=== PATIENT | male | born 1990 | race Caucasian/White ===

== ENCOUNTER 2022-09-18 11:01 | Emergency (ER) | payer MEDICAID, SELFPAY ==
[2022-09-18 11:11] VITALS: BP 115/81; PULSE 96; RESP 16; TEMP 36.6; O2SAT 99
--- NOTE | 2022-09-18 12:29 | ED_ITS ---
HPI - Ear Problem General: Chief complaint: Ear Stated complaint: cough, congestion Time Seen by Provider: 09/18/22 11:15 History of Present Illness: Patient reports that for a couple of weeks he has had ongoing nasal congestion and drainage. He reports the past 2 days he has had significant ringing of both ears. Worse on the left. Associated symptoms: Reports tinnitus; Denies fever(s) or headache(s) Review of Systems Const: Denies: fever(s) or chills ENMT: Reports: change in hearing, tinnitus, nasal discharge and nasal congestion; Denies: throat pain Card: Denies: chest pain or palpitations Resp: Denies: dyspnea, productive cough or non-productive cough Neuro: Denies: headache(s), numbness in extremities, weakness in extremities, dizziness or vertigo Physical Exam Const: COMMON NORMALS: no acute distress, patient oriented x3 and alert HENMT: COMMON NORMALS: Normal external nose present FACE & SINUS: normal facial exam and sinuses nontender NOSE: Normal external nose present, Normal nares present and Abnormal mucous membranes and turbinates present erythematous TYMPANIC MEMBRANE: TM abnormal TM laterality: bilateral with fluid behind the TM Resp: COMMON NORMALS: normal respiratory effort, No use of accessory muscles and clear to auscultation bilaterally AUSCULTATION: clear to auscultation bilaterally Cardio: COMMON NORMALS: regular rate, regular rhythm, S1 normal heart sound present, S2 normal heart sound present and No murmurs present (Cardio) RATE: regular rate RHYTHM: regular rhythm HEART SOUNDS: S1 normal heart sound present and S2 normal heart sound present Neuro: COMMON NORMALS: patient oriented x3 SENSORIUM/ORIENTATION: Yes alert Course Vital Signs: Vital signs: Vital Signs Temperature 97.8 F 09/18/22 11:11 Pulse Rate 96 09/18/22 11:11 Respiratory Rate 16 09/18/22 11:11 Blood Pressure 115/81 09/18/22 11:11 Pulse Oximetry 99 09/18/22 11:11 MDM - Ear Medical Decision Making Consider eustachian tube dysfunction, upper respiratory infection, acute sinusitis. Patient does not have any tenderness to palpation over maxillary or frontal sinuses. Patient is afebrile. Patient does not have any evidence of acute bacterial infection at this time. I recommend control of nasal allergies. Discussed conservative treatment at home including Flonase and Zyrtec with sinus washes. Follow-up with PCP. Return to the ER for new or worsening symptoms. Discharge Plan Discharge Patient Disposition: Home Clinical Impression: Acute dysfunction of both eustachian tubes, Allergic rhinitis Condition: Stable Discharge Orders: Discharge ED (Routine); Ordered 09/18/22 Ordered By: Keke Traylor Discharge Diet: Usual diet Discharge Activity: Resume usual activity Patient Instructions: Allergic Rhinitis (ED) Activity Restrictions/Additional Instructions: I recommend conservative treatment at home to help control nasal allergies including Zyrtec and Flonase [id number]. You can use the [place] pot to help rinse the sinuses. I recommend holding your nose and blowing to help equalize the pressure. This is recommended up to 10 times an hour when you are awake. Sit down when you do this so as not to get dizzy and fall. Follow-up with primary care provider as needed. Return to the ER for new or worsening symptoms. Coding Level of Care Code ED Senior Trial Attorney for Jordan Arellano
== END 2022-09-18 13:03 | disposition home or self-care (01) ==
PROVIDERS: Emergency Provider Nurse Practitioner Family
DX: J30.9 Allergic rhinitis, unspecified (principal); J06.9 Acute upper respiratory infection, unspecified
CPT/HCPCS: 99282

== ENCOUNTER 2023-05-05 18:27 | Emergency (ER) | payer MEDICAID, SELFPAY ==
[2023-05-05 18:27] VITALS: BP 114/65; PULSE 88; RESP 16; TEMP 36.9; O2SAT 97; BMI 24.4
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
[2023-05-05 19:08] LABS: Alanine Aminotransferase 14 U/L (0-41); Albumin Level 4.5 g/dL (3.5-5.2); Alcohol Level 260 mg/dL (0-10); Alkaline Phosphatase 110 U/L (40-130); Anion Gap 13.3 (5-19); Aspartate Amino Transferase 19 U/L (0-40); Blood Urea Nitrogen 9 mg/dL (6-20); Calcium 8.7 mg/dL (8.5-10.5); Carbon Dioxide 24 mmol/L (22-29); Chloride 101 mmol/L (98-107); Globulin 2.5 g/dL (1.3-4.6); Glomerular Filtration Rate 129.9 mL/min (90-130); Glucose 88 mg/dL (65-115); Osmolality Calculated 278 mOsm/kg (285-295); Potassium 3.3 mmol/L (3.5-5.1); Sodium 135 mmol/L (136-145); Total Bilirubin 0.5 mg/dL (0.15-1.2)
[2023-05-05] MEDS: ondansetron 2 mg/ML SDV 2 mL 4 MG IVP (19:11)
[2023-05-05 19:13] VITALS: RESP 17; O2SAT 96
[2023-05-05 19:13] LABS: Basophils # 0.1 10^3/uL (0.0-0.1); Basophils % 0.9 %; Eosinophils # 0.1 10^3/uL (0.0-0.8); Eosinophils % 1.3 %; Hematocrit 43.7 % (42.0-52.0); Hemoglobin 14.8 g/dL (11.7-16.6); Lymphocytes # 2.9 10^3/uL (0.8-4.8); Lymphocytes % 33.3 %; Mean Corpuscular HGB Conc 33.9 g/dL (30.0-36.0); Mean Corpuscular Hemoglobin 29.4 pg (28.0-34.0); Mean Corpuscular Volume 86.7 fl (80-94); Mean Platelet Volume 9.5 fL (7.4-10.4); Monocytes # 0.8 10^3/uL (0.2-0.9); Monocytes % 9.1 %; Neutrophils # 4.73 10^3/uL (1.8-7.7); Neutrophils % 55.2 %; Nucleated Red Blood Cells % 0 %; Platelet Count 376 10^3/cmm (130-400); Red Blood Count 5.04 10^6/uL (4.1-5.3); Red Cell Distribution Width 13.1 % (12.1-15.1); White Blood Count 8.6 10^3/uL (4.0-10.0)
[2023-05-05] MEDS: iohexol 350 mg/mL 500 mL Btl (per mL) IV (19:13)
[2023-05-05] MEDS: morphine 4 mg/mL SDV 1 mL IVP (19:13)
[2023-05-05] MEDS: sodium chloride 0.9% 1,000 ML 999 ML IV (19:14)
[2023-05-05] MEDS: tetanus-dipt-pertussis 0.5 mL SDV IM (19:15)
[2023-05-05 19:35] VITALS: BP 141/74; PULSE 86; RESP 18; O2SAT 97
== END 2023-05-05 21:20 | disposition home or self-care (01) ==
PROVIDERS: Emergency Provider Emergency Medicine
DX: S01.01XA Laceration without foreign body of scalp, initial encounter (principal); S20.219A Contusion of unspecified front wall of thorax, initial encounter; S50.311A Abrasion of right elbow, initial encounter; S06.0X0A Concussion without loss of consciousness, initial encounter; R40.2412 Glasgow coma scale score 13-15, at arrival to emergency department; F10.129 Alcohol abuse with intoxication, unspecified; Z23 Encounter for immunization; V48.0XXA Car driver injured in noncollision transport accident in nontraffic accident, initial encounter
CPT/HCPCS: 12001; 70450; 71260; 72125; 74177; 80053; 80307; 85025; 90471; 90715; 96361; 96374; 96375; 99285; J2270; J2405; J7030; Q9967

== ENCOUNTER 2023-05-13 19:02 | Emergency (ER) | payer MEDICAID, SELFPAY ==
[2023-05-13 19:07] VITALS: BP 127/85; PULSE 76; RESP 16; TEMP 36.6; O2SAT 98; BMI 25.1
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
[2023-05-13] MEDS: acetaminophen 500 mg Tablet 1000 MG PO (20:08)
[2023-05-13] MEDS: meclizine 25 mg tablet PO (21:15)
--- NOTE | 2023-05-22 13:46 | DCPLANNER ---
human resources talent manager called patient due to no primary care physician - no answer at this time.
== END 2023-05-13 21:19 | disposition home or self-care (01) ==
PROVIDERS: Emergency Provider Nurse Practitioner Family
DX: F07.81 Postconcussional syndrome (principal)
CPT/HCPCS: 70450; 99284; J8597

== ENCOUNTER → 2023-06-12 14:13 | Outpatient (BNVA) | payer MEDICAID, SELFPAY | PROVIDERS: PCP Family Medicine; Visit Provider Family Medicine | DX: R11.10 Vomiting, unspecified (principal); E87.6 Hypokalemia | CPT/HCPCS: 80053; 80061; 84439; 84443; 85025; 87400; 87426 ==

== ENCOUNTER 2023-06-17 12:19 | Emergency (ER) | payer MEDICAID, SELFPAY ==
[2023-06-17 12:30] VITALS: BMI 23.7
[2023-06-17 12:33] VITALS: BP 121/81; PULSE 116; RESP 18; TEMP 36.9; O2SAT 94
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
--- NOTE | 2023-06-17 13:50 | ED_ITS ---
HPI - Extremity Injury (Lower) General: Chief Complaint: Extremity Injury, Lower Stated Complaint: Left foot pain Time Seen by Provider: 06/17/23 12:43 Source: patient Mode of arrival: ambulatory Limitations: no limitations History of Present Illness: Patient is a nice 32-year-old male who presents to ED today with a complaint of left foot pain/injury that he sustained approximately a week ago after dropping a heavy box on top of the foot. Patient states throughout the week pain has continued to persist and increase. He has continued to bear weight but with increasing difficulty. He has not noticed significant swelling or bruising to the area. Denies numbness, tingling, loss of sensation. He has not noticed any color or temperature changes. MD complaint: foot injury Onset (ago): day(s) Injury: Left: foot Type of Injury: blunt Place: home Severity: moderate Relieving factors: immobilization Exacerbating factors: weight bearing Context: direct blow Associated symptoms: Reports no associated symptoms Other symptoms: none Review of Systems Musc: Reports: extremity pain (L foot); Denies: extremity swelling, joint pain or joint swelling Neuro: Reports: difficulty walking (secondary to L foot pain); Denies: numbness in extremities or sensory changes PFSH ED PFSH: Surgical History History of thumb surgery Family History Denies family history of Diabetes CAD (coronary artery disease) Clotting disorder Dementia Hyperlipidemia Psychiatric illness Chronic kidney disease (CKD) Anesthesia complication Bleeding disorder Lung disease Cancer Hypertension Stroke Social History Smoking and tobacco status: current every day smoker cigarettes Packs smoked per day: 1 Alcohol intake: never Substance/Drug Use: never Lives independently: Yes Current occupational status: employed Special kristen needs: No Agree to transfusion: Yes Physical Exam Const: COMMON NORMALS: no acute distress, average body habitus, patient oriented x3, no limitations, healthy appearing, alert and well nourished Extremity: COMMON NORMALS: capillary refill normal, no joint enlargement, no clubbing, cyanosis or edema, no calf tenderness and no pedal edema GENERAL: Yes normal exam except as noted LEFT LOWER EXTREMITY: Yes foot & digits (TTP distal dorsal L foot; minimal swelling) Left foot and digits: Yes inspection (no obvious bony deformity; chronic varicosities) and Yes neurovascular exam (normal) Neuro: COMMON NORMALS: patient oriented x3, moves all extremities, no focal motor deficits and no sensory deficits noted SENSORIUM/ORIENTATION: Yes alert Skin: NARRATIVE SKIN EXAM: no abrasions/breaks in skin on L foot Course Vital Signs: Vital signs: Vital Signs Temperature 98.4 F 06/17/23 12:33 Pulse Rate 116 H 06/17/23 12:33 Respiratory Rate 18 06/17/23 12:33 Blood Pressure 121/81 06/17/23 12:33 Pulse Oximetry 94 06/17/23 12:33 Oxygen Delivery Me thod Room Air 06/17/23 12:33 MDM - Extremity Injury (Lower) Medical Decision Making XR showing nondisplaced midshaft fracture of his second metatarsal. Patient will be placed in a posterior short leg splint and given crutches for nonweightbearing. We will have case management get him a follow-up appointment with podiatry. Is requesting pain medication which I feel is appropriate. Discharge Plan Discharge Patient Disposition: Home Clinical Impression: Closed fracture of second metatarsal bone of left foot Qualifiers: Encounter type: initial encounter Fracture alignment: nondisplaced Qualified Code(s): S92.325A - Nondisplaced fracture of second metatarsal bone, left foot, initial encounter for closed fracture Condition: Stable Prescriptions: New hydrocodone-acetaminophen 5-325 mg tablet 1 tab PO Q6H PRN (Reason: pain) Qty: 14 0RF No Action fluoxetine 20 mg capsule 20 mg PO DAILY Qty: 30 0RF hydroxyzine HCl 25 mg tablet 25 mg PO BID PRN (Reason: itching) Qty: 60 0RF Discharge Orders: Discharge ED (Routine); Ordered 06/17/23 Ordered By: Tameka Romo Referrals: Carlos Holm MD [Primary Care Provider] - Patient Instructions: Fractures - Metatarsal, Foot Fracture in Adults (ED), Opioid Safety, Pain Management Activity Restrictions/Additional Instructions: As we discussed no weightbearing until you follow-up with podiatry. Case management should contact you shortly to set you up with this follow-up appointment. You may ice and elevate the extremity to help with pain/swelling. You may take prescribed pain medication for severe pain. 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
[2023-06-17 14:38] VITALS: BP 118/80; PULSE 80; RESP 18; TEMP 36.9; O2SAT 94
--- NOTE | 2023-06-17 14:56 | DCPLANNER ---
Addendum entered by Faviola Gallegos 06/28/23 10:29: Patient did attend this appointment with ortho Addendum entered by Faviola Gallegos 06/18/23 14:34: Patient has a follow up appointment scheduled for May at 10:[address] Andino at ortho. Original Note: hatchery manager had message to schedule a follow up appointment for patient with ortho. hatchery manager sent patients information to the front office staff at ortho. Patients information will be printed and reviewed. Clinic will call patient with appointment information.
== END 2023-06-17 14:41 | disposition home or self-care (01) ==
PROVIDERS: Emergency Provider Physician Assistant; PCP Family Medicine
DX: S92.325A Nondisplaced fracture of second metatarsal bone, left foot, initial encounter for closed fracture (principal); F17.210 Nicotine dependence, cigarettes, uncomplicated; W20.8XXA Other cause of strike by thrown, projected or falling object, initial encounter
CPT/HCPCS: 73630; 99283; E0114

== ENCOUNTER 2023-06-18 16:29 | Outpatient (CLI) | payer MEDICAID, SELFPAY | END 2023-06-18 16:30 | disposition home or self-care (01) | LOC: SPT 16:34 | PROVIDERS: PCP Family Medicine; Visit Provider Podiatrist Foot & Ankle Surgery | DX: S92.325A Nondisplaced fracture of second metatarsal bone, left foot, initial encounter for closed fracture (principal); W20.8XXA Other cause of strike by thrown, projected or falling object, initial encounter | CPT/HCPCS: 97760; 99203; L4361 ==

== ENCOUNTER → 2023-07-02 15:05 | Outpatient (BNVA) | payer MEDICAID, SELFPAY | PROVIDERS: PCP Family Medicine; Visit Provider Podiatrist Foot & Ankle Surgery | DX: S92.325A Nondisplaced fracture of second metatarsal bone, left foot, initial encounter for closed fracture; W20.8XXA Other cause of strike by thrown, projected or falling object, initial encounter | CPT/HCPCS: 73630; 99213 ==

== ENCOUNTER 2023-07-02 16:13 | Outpatient (CLI) | payer MEDICAID, SELFPAY | END 2023-07-02 16:14 | disposition home or self-care (01) | LOC: SPT 16:13 | PROVIDERS: PCP Family Medicine; Visit Provider Podiatrist Foot & Ankle Surgery | DX: Z46.89 Encounter for fitting and adjustment of other specified devices (principal); S92.322D Displaced fracture of second metatarsal bone, left foot, subsequent encounter for fracture with routine healing; X58.XXXD Exposure to other specified factors, subsequent encounter | CPT/HCPCS: L3031 ==

== ENCOUNTER → 2023-07-30 14:20 | Outpatient (BNVA) | payer MEDICAID, SELFPAY | PROVIDERS: PCP Family Medicine; Visit Provider Podiatrist Foot & Ankle Surgery | DX: S92.325D Nondisplaced fracture of second metatarsal bone, left foot, subsequent encounter for fracture with routine healing; W20.8XXD Other cause of strike by thrown, projected or falling object, subsequent encounter | CPT/HCPCS: 73630; 99213 ==

== ENCOUNTER → 2023-08-09 11:21 | Outpatient (BNVA) | payer MEDICAID, SELFPAY | PROVIDERS: PCP Family Medicine; Visit Provider Nurse Practitioner Family | DX: R50.9 Fever, unspecified (principal); J06.9 Acute upper respiratory infection, unspecified | CPT/HCPCS: 87400; 87426 ==

== ENCOUNTER 2023-08-13 21:37 | Inpatient (IN) | payer MEDICAID, SELFPAY ==
[2023-08-13 21:38] VITALS: BP 128/95; PULSE 114; RESP 18; TEMP 36.8; O2SAT 98; BMI 25.1
--- NOTE | 2023-08-13 21:40 | W.ED.PSYCHS ---
HPI - Psych General: Chief Complaint: Psychiatric Symptoms Stated Complaint: SI Time Seen by Provider: 08/13/23 21:38 Source: patient and EMS Mode of arrival: EMS Limitations: no limitations History of Present Illness: 33-year-old male with history of schizophrenia along with depression he states that he has been hearing voices and states that today he started having suicidal thoughts he denies any specific plans but states that his voices are worsening his actively feeling suicidal and feels like he needs to get help. Denies any worsening improving factors. Associated symptoms: Reports auditory hallucinations, depression and suicidal ideation Review of Systems Const: Denies: fever(s), chills, body aches or change in appetite Eyes: Denies: blurry vision or eye discomfort ENMT: Denies: throat pain or dental pain Card: Denies: chest pain Resp: Denies: dyspnea GI: Denies: abdominal pain, nausea, vomiting or diarrhea Musc: Denies: neck pain or back pain Skin/Breast: Denies: rash Neuro: Denies: headache(s) Psych: Reports: depression, auditory hallucinations and suicidal ideation [facility] ED PFSH: Medical History PTSD (post-traumatic stress disorder) Schizophrenia Surgical History History of thumb surgery Family History Denies family history of Diabetes CAD (coronary artery disease) Clotting disorder Dementia Hyperlipidemia Psychiatric illness Chronic kidney disease (CKD) Anesthesia complication Bleeding disorder Lung disease Cancer Hypertension Stroke Social History Smoking and tobacco/nicotine status: current every day tobacco/nicotine user cigarettes Packs smoked per day: 1 Alcohol intake: current Alcohol intake frequency: few times a week Alcohol type: beer Substance/Drug Use: never Lives independently: Yes Current occupational status: employed Special kristen needs: No Agree to transfusion: Yes Physical Exam Const: COMMON NORMALS: no acute distress, patient oriented x3 and healthy appearing HENMT: COMMON NORMALS: normocephalic and atraumatic HEAD & SCALP: normocephalic and atraumatic Neck/C-Spine: COMMON NORMALS: full ROM and supple Chest: COMMONS NORMALS: normal inspection of the chest and normal palpation of entire chest wall Resp: COMMON NORMALS: normal respiratory effort, No retractions, No use of accessory muscles and clear to auscultation bilaterally AUSCULTATION: clear to auscultation bilaterally Cardio: COMMON NORMALS: regular rate, regular rhythm and No murmurs present (Cardio) RATE: regular rate RHYTHM: regular rhythm GI: COMMON NORMALS: Normal to inspection, nondistended, normoactive bowel sounds present, Soft to palpation, non-tender and no masses PALPATION: Yes Soft to palpation Extremity: COMMON NORMALS: normal to inspection and full ROM Neuro: COMMON NORMALS: patient oriented x3, moves all extremities and no focal motor deficits Psych: COMMON NORMALS: mental status grossly normal, Normal thought process present and cooperative MOOD & AFFECT: Yes depressed mood THOUGHT PROCESS: Normal thought process present THOUGHT CONTENT: Yes Suicidality present Skin: COMMON NORMALS: no rashes or lesions noted and no wounds GENERAL SKIN EXAM: no rashes or lesions noted Course Vital Signs: Vital signs: Vital Signs Temperature 98.2 F 08/13/23 21:38 Pulse Rate 114 H 08/13/23 21:38 Respiratory Rate 18 08/13/23 21:38 Blood Pressure 128/95 08/13/23 21:38 Pulse Oximetry 98 08/13/23 21:38 Oxygen Delivery Me thod Room Air 08/13/23 21:38 MDM - Psych Medical Decision Making Patient presents here with auditory hallucinations along with suicidal ideations patient placed under 96-hour hold I spoke to psychiatrist and will admit. Medical Records I reviewed the patient's medical records. Lab Data I reviewed the patient's lab results. 08/13/23 21:52 08/13/23 21:52 Laboratory Results WBC 7.09 10^3/uL (3.29-11.43) 08/13/23 21:52 RBC 5.16 10^6/uL (3.85-5.65) 08/13/23 21:52 Hgb 14.80 g/dL (11.27-16.99) 08/13/23 21:52 Hct 45.3 % (37-53) 08/13/23 21:52 MCV 87.8 fl (82-101) 08/13/23 21:52 MCH 28.7 pg (27-33) 08/13/23 21:52 MCHC 32.7 g/dL (30-55) 08/13/23 21:52 RDW 13.3 % (12.1-15.1) 08/13/23 21:52 Plt Count 375 10^3/cmm (157-399) 08/13/23 21:52 MPV 8.8 fL (7.4-10.4) 08/13/23 21:52 Neut % (Auto) 47.2 % 08/13/23 21:52 Lymph % (Auto) 39.9 % 08/13/23 21:52 Wilkin % (Auto) 10.0 % 08/13/23 21:52 Eos % (Auto) 1.3 % 08/13/23 21:52 Baso % (Auto) 1.3 % 08/13/23 21:52 Neut # (Auto) 3.35 10^3/uL (1.8-7.7) 08/13/23 21:52 Lymph # (Auto) 2.8 10^3/uL (0.8-4.8) 08/13/23 21:52 Wilkin # (Auto) 0.7 10^3/uL (0.2-0.9) 08/13/23 21:52 Eos # (Auto) 0.1 10^3/uL (0.0-0.8) 08/13/23 21:52 Baso # (Auto) 0.1 10^3/uL (0.0-0.1) 08/13/23 21:52 Nucleated RBC % (auto) 0 % 08/13/23 21:52 Nucleated RBCs # 0.0 /100WBC 08/13/23 21:52 No radiology studies performed this visit Discharge Plan Discharge Patient Disposition: Admitted As Inpatient Admit Provider: Brendan Gee Clinical Impression: Suicidal ideations, Hallucinations Condition: Stable Coding Level of Care Code ED [place] for Jordan Arellano
[2023-08-13 21:57] LABS: Basophils # 0.1 10^3/uL (0.0-0.1); Basophils % 1.3 %; Eosinophils # 0.1 10^3/uL (0.0-0.8); Eosinophils % 1.3 %; Hematocrit 45.3 % (37-53); Lymphocytes # 2.8 10^3/uL (0.8-4.8); Lymphocytes % 39.9 %; Mean Corpuscular HGB Conc 32.7 g/dL (30-55); Mean Corpuscular Hemoglobin 28.7 pg (27-33); Mean Corpuscular Volume 87.8 fl (82-101); Mean Platelet Volume 8.8 fL (7.4-10.4); Monocytes # 0.7 10^3/uL (0.2-0.9); Neutrophils # 3.35 10^3/uL (1.8-7.7); Neutrophils % 47.2 %; Nucleated Red Blood Cells % 0 %; Platelet Count 375 10^3/cmm (157-399); Red Blood Count 5.16 10^6/uL (3.85-5.65); Red Cell Distribution Width 13.3 % (12.1-15.1); White Blood Count 7.09 10^3/uL (3.29-11.43)
--- NOTE | 2023-08-13 21:57 | PC.NURSE ---
96 Pt served with copy of 96 Hour Hold paper by this RN and security. Pt agreeable and pleasant at this time.
[2023-08-13 22:10] LABS: Amphetamines Screen Urine Negative (Negative); Barbiturates Screen Urine Negative (Negative); Benzodiazepines Screen Urine Negative (Negative); Cocaine Screen Urine Negative (Negative); Opiate Screen Urine Negative (Negative); PCP Screen Urine Negative (Negative); THC Screen Urine Negative (Negative)
[2023-08-13 22:20] LABS: Alanine Aminotransferase 15 U/L (0-41); Albumin Level 4.7 g/dL (3.5-5.2); Alcohol Level 123 mg/dL (0-10); Alkaline Phosphatase 115 U/L (40-130); Aspartate Amino Transferase 20 U/L (0-40); Blood Urea Nitrogen 12 mg/dL (6-20); Calcium 9.3 mg/dL (8.5-10.5); Carbon Dioxide 29 mmol/L (22-29); Chloride 104 mmol/L (98-107); Globulin 2.7 g/dL (1.3-4.6); Glomerular Filtration Rate 69.3 mL/min (90-130); Glucose 90 mg/dL (65-115); Osmolality Calculated 293 mOsm/kg (285-295); Sodium 142 mmol/L (136-145); Total Bilirubin 0.5 mg/dL (0.15-1.2); Total Protein 7.4 g/dL (6.6-8.7)
[2023-08-13 22:21] LABS: Acetaminophen < 5.0 ug/mL (10-30); Salicylate < 0.3 mg/dL (3-10)
[2023-08-13 22:23] VITALS: BP 124/91; BP 130/86; PULSE 109; PULSE 92; RESP 18; RESP 20; TEMP 36.7; O2SAT 98
[2023-08-13] MEDS: trazodone 50 mg Tablet PO (22:51)
[2023-08-14 06:00] VITALS: BP 112/66; PULSE 80; RESP 17; TEMP 36.7; O2SAT 95
[2023-08-14] MEDS: thiamine 100 mg Tablet PO (08:26)
[2023-08-14] MEDS: folic acid 1 mg Tablet PO (08:26)
[2023-08-14] MEDS: multivitamin therapeutic Tablet 1 TAB PO (08:26)
[2023-08-14] MEDS: nicotine 21 mg Patch 1 PATCH TRANSDERMA (08:32)
[2023-08-14] MEDS: ibuprofen 600 mg Tablet PO (09:01)
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
[2023-08-14 14:00] VITALS: BP 118/69; PULSE 86; RESP 17; TEMP 36.8; O2SAT 97
[2023-08-14] MEDS: hyDROXYzine 25 mg Capsule 50 MG PO (14:34)
[2023-08-14] MEDS: nicotine 2 mg Gum BUCCAL ×3 (14:45→20:45)
[2023-08-14] MEDS: OLANZapine 5 mg ODT PO (18:30)
[2023-08-14 20:19] VITALS: BP 108/68; PULSE 88; RESP 17; TEMP 36.9; O2SAT 97
[2023-08-14] MEDS: quetiapine 100 mg Tablet PO (20:45)
[2023-08-15 06:00] VITALS: BP 115/71; PULSE 70; RESP 18; TEMP 36.5; O2SAT 99
[2023-08-15] MEDS: fluoxetine 20 mg Capsule PO (08:48)
[2023-08-15] MEDS: thiamine 100 mg Tablet PO (08:49)
[2023-08-15] MEDS: folic acid 1 mg Tablet PO (08:49)
[2023-08-15] MEDS: nicotine 2 mg Gum BUCCAL ×3 (08:49→15:00)
[2023-08-15] MEDS: multivitamin therapeutic Tablet 1 TAB PO (08:49)
[2023-08-15] MEDS: ARIPiprazole 10 mg Tablet PO (08:49)
--- NOTE | 2023-08-15 13:05 | P.NPUPN_ITS ---
Subjective NPU Subjective: Patient presented today reporting that he is feeling better and lobbying for discharge sooner rather than later. We had a lengthy discussion about when his 96-hour hold ends and just wanting to make sure that the medication is in fact functioning. We discussed concerns about him restarting the medication that was started at his doctor's office. We discussed consideration of a long-acting injectable. Mental Status Exam MSE Comments: This is a well-nourished, well-developed, white male, in hospital scrubs, with adequate grooming and eye contact. No abnormal movements, except for mild psyc homotor retardation. Cooperative with exam in mild distress. Speech was normal rate and volume. Mood described as anxious, a little depressed; affect slightly subdued and robotic. Thought process, organized. Thought content: patient denied any suicidal or homicidal ideation; patient endorses slight paranoia currently; he endorses auditory hallucinations. Attention, concentration, and memory appear ed intact, but none were formally tested. Alert and oriented times three. Insight and judgment appear limited. Impulse control is impaired. Vitals/I&O/Wt Last Vital Signs Temp 97.7 F 08/15/23 06:00 Pulse 70 08/15/23 06:00 Resp 18 08/15/23 06:00 BP 115/71 08/15/23 06:00 Pulse Ox 99 08/15/23 06:00 O2 Del Method Room Air 08/15/23 06:00 Weight last 48 hrs Weight 81.647 kg Data NPU 08/13/23 21:52 08/13/23 21:52 A&P Assessment and plan (1) Suicidal ideations: (2) Hallucinations: (3) PTSD (post-traumatic stress disorder): (4) Schizophrenia: Plan This is a 33-year-old, white male, with a reported history of schizophrenia but very limited history of treatment or exposure to different medications. Without significant psychiatric follow-up reporting an openness to try different medications. 1. Continue current medication except: 2. Decrease Seroquel. 3. Stared Abilify 10 mg p.o. daily. We will consider increasing to 15 mg. 4. Encourage individual, group, and milieu therapy. 5. Continue q-15-minute checks for safety. Involuntary Hold Information 96 Hour Hold: 96 Hour Involuntary Admission: Yes Attestations NPU Medical Necessity Statement*: Inpatient hospitalization is medically necessary and the clinically appropriate intervention, at this time. We will monitor medications and make changes as indicated. Likely length of stay is 2-4 days. Coding Level of Care Code Acute Code for [facility]g Fwd Diagnoses Suicidal ideations R45.851 Hallucinations R44.3 PTSD (post-traumatic stress disorder) F43.10 Schizophrenia F20.9
[2023-08-15 14:00] VITALS: BP 120/79; PULSE 95; RESP 17; TEMP 36.9; O2SAT 95
[2023-08-15] MEDS: hyDROXYzine 25 mg Capsule 50 MG PO (15:17)
[2023-08-15 19:38] VITALS: BP 116/71; PULSE 79; RESP 16; TEMP 36.9; O2SAT 98
[2023-08-15] MEDS: trazodone 100 mg Tablet PO (20:57)
[2023-08-15] MEDS: quetiapine 100 mg Tablet PO (20:57)
[2023-08-16 06:00] VITALS: BP 107/71; PULSE 73; RESP 16; TEMP 36.9; O2SAT 96
[2023-08-16] MEDS: multivitamin therapeutic Tablet 1 TAB PO (08:35)
[2023-08-16] MEDS: ARIPiprazole 10 mg Tablet PO (08:35)
[2023-08-16] MEDS: thiamine 100 mg Tablet PO (08:35)
[2023-08-16] MEDS: hyDROXYzine 25 mg Capsule 50 MG PO (08:35)
[2023-08-16] MEDS: folic acid 1 mg Tablet PO (08:35)
[2023-08-16] MEDS: fluoxetine 20 mg Capsule PO (08:35)
--- NOTE | 2023-08-16 11:06 | P.NPUPN_ITS ---
Subjective NPU Subjective: Patient presented today reporting that he is doing okay. He was really focused on discharge primarily secondary to not wanting to cause a problem at work. He does not lose his job and reports that he called off again and does not have to be there till Saturday and feels that as long as he is there by Saturday everything will be fine. We discussed the risks, benefits and alternatives of starting Abilify Maintena with a plan to switch over to Abilify Asimtufii and he understood and agreed to proceed as is documented in his note. We discussed discharge in the morning. Mental Status Exam MSE Comments: This is a well-nourished, well-developed, white male, in hospital scrubs, with adequate grooming and eye contact. No abnormal movements, except for mild psychomotor retardation. Cooperative with exam in mild distress. Speech was normal rate and volume. Mood described as anxious, a little depressed; affect slightly subdued and robotic. Thought process, organized. Thought content: patient denied any suicidal or homicidal ideation; patient endorses slight paranoia currently; he endorses auditory hallucinations. Attention, concentration, and memory appeared intact, but none were formally tested. Alert and oriented times three. Insight and judgment appear limited. Impulse control is impaired. Vitals/I&O/Wt Last Vital Signs Temp 98.4 F 08/16/23 06:00 Pulse 73 08/16/23 06:00 Resp 16 08/16/23 06:00 BP 107/71 08/16/23 06:00 Pulse Ox 96 08/16/23 06:00 O2 Del Method Room Air 08/16/23 06:00 Data NPU 08/13/23 21:52 08/13/23 21:52 A&P Assessment and plan (1) Suicidal ideations: (2) Hallucinations: (3) PTSD (post-traumatic stress disorder): (4) Schizophrenia: Plan This is a 33-year-old, white male, with a reported history of schizophrenia but very limited history of treatment or exposure to different medications. Without significant psychiatric follow-up reporting an openness to try different medicat ions. 1. Continue current medication except: 2. Decrease Seroquel. 3. Stared Abilify 10 mg p.o. daily. We will consider increase to 15 mg. And gave Abilify Maintena injection 400 mg IM q. monthly. We will attempt to discharge with a plan to switch over to Abilify Asimtufii. 4. Encourage individual, group, and milieu therapy. 5. Continue q-15-minute checks for safety. Involuntary Hold Information 96 Hour Hold: 96 Hour Involuntary Admission: Yes Attestations NPU Medical Necessity Statement*: Inpatient hospitalization is medically necessary and the clinically appropriate intervention, at this time. We will monitor medications and make changes as indicated. Likely length of stay is 1-3 days. Coding Level of Care Code Acute Code for Chg Fwd Diagnoses Suicidal ideations R45.851 Hallucinations R44.3 PTSD (post-traumatic stress disorder) F43.10 Schizophrenia F20.9
[2023-08-16] MEDS: OLANZapine 5 mg ODT PO (12:22)
[2023-08-16] MEDS: ARIPiprazole Maintena 400 MG IM (12:39)
[2023-08-16] MEDS: nicotine 21 mg Patch 1 PATCH TRANSDERMA (12:39)
--- NOTE | 2023-08-16 12:51 | PC.NURSE ---
Administered 400mg Abilify Maintena to patient's left deltoid muscle. No adverse reactions. Patient tolerated injection well. Lot: [id number]: Dec 2025
[2023-08-16 14:00] VITALS: BP 122/74; PULSE 73; RESP 16; TEMP 36.6; O2SAT 95
[2023-08-16] MEDS: trazodone 100 mg Tablet PO (20:11)
[2023-08-16] MEDS: quetiapine 100 mg Tablet PO (20:11)
[2023-08-16] MEDS: nicotine 2 mg Gum BUCCAL (20:27)
[2023-08-16 20:32] VITALS: BP 110/76; PULSE 87; RESP 18; TEMP 36.8; O2SAT 96
[2023-08-17 06:00] VITALS: BP 102/67; PULSE 83; RESP 16; O2SAT 96
[2023-08-17] MEDS: ARIPiprazole 10 mg Tablet PO (08:28)
[2023-08-17] MEDS: thiamine 100 mg Tablet PO (08:28)
[2023-08-17] MEDS: multivitamin therapeutic Tablet 1 TAB PO (08:28)
[2023-08-17] MEDS: fluoxetine 20 mg Capsule PO (08:28)
[2023-08-17] MEDS: folic acid 1 mg Tablet PO (08:28)
--- NOTE | 2023-08-17 09:02 | PC.NURSE ---
Patient states that he is doing pretty good. Patient denies SI, HI, anxiety, depression, and AVH. Patient cooperative, states that he is ready to be discharged.
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
[2023-08-17 10:28] VITALS: BP 102/67; PULSE 83; RESP 16; O2SAT 96
--- NOTE | 2023-08-17 10:40 | PC.NURSE ---
Dr. Gee told this nurse to verbally change Abilify 15mg to Abilfy 10mg PO at [facility]. [place] [facility] [place] Abilify 400mg IM at no cost to patient.
[2023-08-17] MEDS: nicotine 2 mg Gum BUCCAL (13:02)
[2023-08-17 13:09] VITALS: BP 112/73; PULSE 80; RESP 14; TEMP 37; O2SAT 96
== END 2023-08-17 16:33 | disposition home or self-care (01) | DRG 885 ==
LOC: ER 21:54 → NP 21:59
PROVIDERS: Admitting Provider Psychiatry & Neurology Psychiatry; Emergency Provider Emergency Medicine; PCP Family Medicine; Visit Provider Psychiatry & Neurology Psychiatry
DX: F20.9 Schizophrenia, unspecified (principal); R45.851 Suicidal ideations; F17.210 Nicotine dependence, cigarettes, uncomplicated; F10.90 Alcohol use, unspecified, uncomplicated; F43.10 Post-traumatic stress disorder, unspecified
CPT/HCPCS: 36415; 80053; 80306; 80307; 85025; 96372; 97150; 97165; 99285

== ENCOUNTER 2023-08-26 14:07 | Emergency (ER) | payer MEDICAID, SELFPAY ==
[2023-08-26 14:28] VITALS: BP 122/76; PULSE 105; RESP 16; TEMP 36.6; O2SAT 97; BMI 25.1
--- NOTE | 2023-08-26 14:57 | XRR_ITS ---
PROCEDURE INFORMATION: Exam: XR Left Foot Exam date and time: 08/26/2023 3:07 PM Age: 33 years old Clinical indication: Other: Pain; Additional info: Pain, healing 2nd metatarsal fx-doi may TECHNIQUE: Imaging protocol: Radiologic exam of the left foot. Views: 3 or more views. COMPARISON: No relevant prior studies available. FINDINGS: Bones/joints: Healing 2nd metatarsal shaft fracture with remodeling callus formation. No acute fracture. Mineralization is normal and joints are maintained. Soft tissues: Unremarkable. XR/XR foot LT min 3V* [id number] IMPRESSION: Healing 2nd metatarsal shaft fracture.
--- NOTE | 2023-08-26 14:59 | ED_ITS ---
HPI - General Adult General: Chief complaint: Extremity Injury, Lower Stated complaint: Left foot second toe injury, also med side effects Time Seen by Provider: 08/26/23 14:34 Source: patient Mode of arrival: ambulatory Limitations: no limitations History of Present Illness: Patient is a 33-year-old male who presents to ED today with two separate complaints. First of all he tells me he is having left foot pain. Patient sustained a fracture to his left second metatarsal back in May after dropping something heavy on it. He has had appropriate follow-up through podiatry as well his PCP. Patient states he has been cleared to remove his boot and carbon fiber insert. Instructions for normal weight bearing/no restrictions. He states with his current situation he has been walking for long distances daily up to several miles a day. He feels like this most likely has exacerbated his foot pain. No new injuries or trauma. Patient's second complaint is that he believes he is having adverse reactions to his Abilify injection. He states he received this recently while in [facility] and a few days later he began experiencing side effects of increased salivation and dizziness. He states dizziness is mainly in the mornings and seems to improve throughout the day. He thinks this may be secondary to hypotension. Patient was normotensive upon arrival. Following injection he was placed on oral Abilify 10mg daily. He also takes Seroquel, Trazadone, and Prozac daily. Onset (ago): day(s) Pain Consistency: constant Relieving factors: immobilization Exacerbating factors: medication (new medication) and other (walking) Associated symptoms: Deny chest pain, confusion, dyspnea, headache(s), malaise, nausea, rash, palpitations, syncope or vomiting Treatments prior to arrival: none Review of Systems Const: Denies: fever(s), chills, body aches, fatigue or malaise Eyes: Denies: change in vision or blurry vision ENMT: Reports: other (increased salivation ); Denies: throat pain, odynophagia, hoarseness, mouth pain, swelling of lips/tongue, oral sores, bleeding gums, dental pain, dry mouth, ear or mastoid pain, nasal discharge, nasal congestion or sinus pain Card: Reports: lightheadedness; Denies: chest pain, palpitations, irregular heart rhythm, edema, swelling of feet/ankles, syncope, pre-syncope, dyspnea on exertion, orthopnea, leg pain with exertion or acrocyanosis Resp: Denies: dyspnea, productive cough or pain on inspiration GI: Denies: abdominal pain, nausea, vomiting, heartburn or diarrhea : Denies: flank pain, difficulty urinating or dysuria Musc: Reports: extremity pain (L foot); Denies: neck pain, back pain, extremity swelling, joint pain, joint swelling, joint redness, joint warmth or limited range of motion Skin/Breast: Denies: rash Neuro: Reports: dizziness; Denies: headache(s), numbness in extremities, weakness in extremities, sensory changes, lack of coordination, frequent falls, vertigo, confusion, behavioral changes, Slurred speech present, difficulty communicating thoughts or seizure- like activity PFSH ED PFSH: Medical History PTSD (post-traumatic stress disorder) Schizophrenia Surgical History History of thumb surgery Family History Denies family history of Diabetes CAD (coronary artery disease) Clotting disorder Dementia Hyperlipidemia Psychiatric illness Chronic kidney disease (CKD) Anesthesia complication Bleeding disorder Lung disease Cancer Hypertension Stroke Social History Smoking and tobacco/nicotine status: current every day tobacco/nicotine user cigarettes Packs smoked per day: 1 Alcohol intake: current Alcohol intake frequency: few times a week Alcohol type: beer Substance/Drug Use: never Lives independently: Yes Current occupational status: employed Special kristen needs: No Agree to transfusion: Yes Physical Exam Const: COMMON NORMALS: no acute distress, average body habitus, patient oriented x3, no limitations, healthy appearing, alert and well nourished ORIENTATION/CONSCIOUSNESS: Yes awake, Yes oriented to person, Yes oriented to place and Yes oriented to time HENMT: COMMON NORMALS: normocephalic, atraumatic, EAC's normal and TM's normal bilaterally HEAD & SCALP: normal to inspection, normocephalic and atraumatic FACE & SINUS: normal facial exam EXTERNAL AUDITORY CANAL: EAC's normal TYMPANIC MEMBRANE: TM's normal bilaterally MOUTH: Normal oral and palatal mucosa present, lip normal, tongue normal and Normal salivary glands and ducts present; no audible dysphonia and no drooling THROAT: posterior oropharynx normal, tonsils normal and uvula midline Eye: GENERAL EYE: appearance normal, both eyes and all related structures Neck/C-Spine: COMMON NORMALS: full ROM, no lymphadenopathy, supple and no meningeal signs GENERAL: Yes normal visual inspection, No anterior neck swelling and No submandibular swelling Chest: COMMONS NORMALS: normal inspection of the chest Resp: COMMON NORMALS: normal respiratory effort and clear to auscultation bilaterally AUSCULTATION: clear to auscultation bilaterally Cardio: COMMON NORMALS: regular rate and regular rhythm RATE: regular rate RHYTHM: regular rhythm Extremity: COMMON NORMALS: normal to inspection, full ROM, capillary refill normal, no joint enlargement, no clubbing, cyanosis or edema, no calf tenderness and no pedal edema GENERAL: Yes normal exam except as noted LEFT LOWER EXTREMITY: Yes foot & digits (TTP dorsum L foot w/o swelling or deformity noted) Left foot and digits: Yes neurovascular exam (normal) Neuro: LUCIANA COMA SCALE: document GCS findings Theodosia coma scale eye opening: Spontaneous Theodosia coma scale verbal response: Orientated Luciana coma scale motor response: Obey commands Theodosia coma scale total score: 15 COMMON NORMALS: patient oriented x3, CN's II-XII intact bilaterally, moves all extremities, no focal motor deficits, no sensory deficits noted and gait normal SENSORIUM/ORIENTATION: Yes alert, Yes oriented to person, Yes oriented to place and Yes oriented to time MENINGEAL SIGNS: Yes no meningeal signs COORDINATION/BALANCE: Romberg test negative SPEECH: speech normal GAIT: Yes Normal gait present Skin: COMMON NORMALS: no rashes or lesions noted GENERAL SKIN EXAM: no rashes or lesions noted Course Vital Signs: Vital signs: Vital Signs Temperature 97.8 F 08/26/23 14:28 Pulse Rate 105 H 08/26/23 14:28 Respiratory Rate 16 08/26/23 14:28 Blood Pressure 122/76 08/26/23 14:28 Pulse Oximetry 97 08/26/23 14:28 Oxygen Delivery Me thod Room Air 08/26/23 14:28 MDM - General Adult Medical Decision Making Shortly after initial examination-RN alerted me that patient is leaving AMA. He apparently told nursing staff he had an emergency and had to quickly leave. He eloped prior to me having a chance to speak with him. All radiology interpretation(s) finalized by discharge Discharge Plan Discharge Patient Disposition: Left Against Medical Advice Clinical Impression: Left foot pain, Dizziness Condition: Stable Prescriptions: No Action aripiprazole 15 mg tablet 10 mg PO DAILY 30 Days Qty: 30 1RF Rx Instructions: Stop taking in 14 days. Should resume if there is any problem with obtaining the Abilify Maintena injection in 1 month. quetiapine 100 mg Tablet 100 mg PO BEDTIME 30 Days Qty: 30 1RF fluoxetine 20 mg Capsule 20 mg PO DAILY 30 Days Qty: 30 1RF thiamine mononitrate (vit B1) [Vitamin B-1 (mononitrate)] 100 mg Tablet 100 mg PO DAILY 30 Days Qty: 30 1RF trazodone 100 mg Tablet 100 mg PO BEDTIME 30 Days Qty: 30 1RF Abilify Maintena 400 mg suspension,extended rel recon 400 mg IM Q28D 28 Days Qty: 1 1RF Rx Instructions: Next injection 09/13/2023 then as directed hydroxyzine HCl 25 mg tablet 25 mg PO BID PRN (Reason: itching) Qty: 60 1RF Referrals: Carlos Holm MD [Primary Care Provider] - Coding Level of Care Code ED Environmental Marketing Representative for Jordan Arellano
[2023-08-26 15:25] VITALS: BP 122/76; PULSE 105; RESP 16; TEMP 36.6; O2SAT 97
[2023-08-26 15:27] LABS: Basophils # 0.1 10^3/uL (0.0-0.1); Basophils % 0.8 %; Eosinophils # 0.1 10^3/uL (0.0-0.8); Eosinophils % 0.9 %; Hematocrit 47.9 % (37-53); Lymphocytes % 26.1 %; Mean Corpuscular HGB Conc 33.4 g/dL (30-55); Mean Corpuscular Volume 86.9 fl (82-101); Mean Platelet Volume 8.7 fL (7.4-10.4); Monocytes # 0.5 10^3/uL (0.2-0.9); Monocytes % 6.7 %; Neutrophils # 5.06 10^3/uL (1.8-7.7); Neutrophils % 65.1 %; Nucleated Red Blood Cells % 0 %; Platelet Count 394 10^3/cmm (157-399); Red Blood Count 5.51 10^6/uL (3.85-5.65); Red Cell Distribution Width 13.4 % (12.1-15.1); White Blood Count 7.77 10^3/uL (3.29-11.43)
[2023-08-26 15:43] LABS: Alanine Aminotransferase 19 U/L (0-41); Albumin Level 4.7 g/dL (3.5-5.2); Alkaline Phosphatase 114 U/L (40-130); Anion Gap 11.8 (5-19); Aspartate Amino Transferase 18 U/L (0-40); Blood Urea Nitrogen 9 mg/dL (6-20); Calcium 9.4 mg/dL (8.5-10.5); Carbon Dioxide 28 mmol/L (22-29); Chloride 100 mmol/L (98-107); Globulin 2.5 g/dL (1.3-4.6); Glomerular Filtration Rate 110.7 mL/min (90-130); Glucose 116 mg/dL (65-115); Osmolality Calculated 282 mOsm/kg (285-295); Potassium 3.8 mmol/L (3.5-5.1); Sodium 136 mmol/L (136-145); Total Bilirubin 0.5 mg/dL (0.15-1.2); Total Protein 7.2 g/dL (6.6-8.7)
== END 2023-08-26 15:26 | disposition left against medical advice (07) ==
PROVIDERS: Emergency Provider Physician Assistant; PCP Family Medicine
DX: M79.672 Pain in left foot (principal); R42 Dizziness and giddiness; Z53.21 Procedure and treatment not carried out due to patient leaving prior to being seen by health care provider; F17.210 Nicotine dependence, cigarettes, uncomplicated
CPT/HCPCS: 36415; 73630; 80053; 85025; 99284

== ENCOUNTER 2023-08-28 13:35 | Inpatient (IN) | payer MEDICAID, SELFPAY ==
[2023-08-28 13:41] VITALS: BP 146/87; PULSE 98; RESP 18; TEMP 36.8; O2SAT 95; BMI 25.1
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
[2023-08-28 14:05] LABS: Basophils # 0.1 10^3/uL (0.0-0.1); Basophils % 0.7 %; Eosinophils % 0.3 %; Hematocrit 43.5 % (37-53); Lymphocytes # 1.8 10^3/uL (0.8-4.8); Lymphocytes % 19.9 %; Mean Corpuscular Hemoglobin 29.1 pg (27-33); Mean Corpuscular Volume 85.5 fl (82-101); Mean Platelet Volume 8.6 fL (7.4-10.4); Monocytes # 0.8 10^3/uL (0.2-0.9); Monocytes % 8.8 %; Neutrophils # 6.19 10^3/uL (1.8-7.7); Neutrophils % 70.1 %; Nucleated Red Blood Cells % 0 %; Platelet Count 335 10^3/cmm (157-399); Red Blood Count 5.09 10^6/uL (3.85-5.65); Red Cell Distribution Width 13.2 % (12.1-15.1); White Blood Count 8.84 10^3/uL (3.29-11.43)
[2023-08-28 14:24] LABS: Acetaminophen 16.8 ug/mL (10-30); Alanine Aminotransferase 18 U/L (0-41); Albumin Level 4.3 g/dL (3.5-5.2); Alcohol Level 39 mg/dL (0-10); Alkaline Phosphatase 102 U/L (40-130); Anion Gap 15.4 (5-19); Aspartate Amino Transferase 16 U/L (0-40); Blood Urea Nitrogen 8 mg/dL (6-20); Calcium 9.2 mg/dL (8.5-10.5); Carbon Dioxide 22 mmol/L (22-29); Chloride 99 mmol/L (98-107); Globulin 2.2 g/dL (1.3-4.6); Glomerular Filtration Rate 110.7 mL/min (90-130); Glucose 118 mg/dL (65-115); Osmolality Calculated 275 mOsm/kg (285-295); Potassium 3.4 mmol/L (3.5-5.1); Sodium 133 mmol/L (136-145); Total Bilirubin 0.7 mg/dL (0.15-1.2); Total Protein 6.5 g/dL (6.6-8.7)
[2023-08-28 14:25] LABS: Salicylate < 0.3 mg/dL (3-10)
--- NOTE | 2023-08-28 14:27 | PC.PHAR ---
PT STATES HE TAKES CARE OF HIS OWN MEDICATIONS-PT STATES HE TAKES ARIPIPRAZOLE 5-10MG PO DAILY EXT SHOWS LAST FILLED 10MG DAILY ON 08/17/23 30D/S-
[2023-08-28] MEDS: hyDROXYzine 25 mg Capsule 50 MG PO (14:33)
[2023-08-28 15:08] LABS: Amphetamines Screen Urine Negative (Negative); Barbiturates Screen Urine Negative (Negative); Benzodiazepines Screen Urine Negative (Negative); Cocaine Screen Urine Negative (Negative); Opiate Screen Urine Negative (Negative); PCP Screen Urine Negative (Negative); THC Screen Urine Negative (Negative)
[2023-08-28 16:12] VITALS: BP 164/93; PULSE 109; RESP 18; TEMP 36.7; O2SAT 98
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
[2023-08-28] MEDS: nicotine 4 mg lozenge MUCOUS MEM (17:01)
[2023-08-28 19:33] VITALS: BP 123/82; PULSE 79; RESP 17; TEMP 36.8; O2SAT 97
[2023-08-28] MEDS: quetiapine 100 mg Tablet PO (19:38)
[2023-08-28] MEDS: trazodone 100 mg Tablet PO (19:38)
[2023-08-28] MEDS: ondansetron 4 MG Tablet PO (21:38)
[2023-08-28] MEDS: acetaminophen 325 mg Tablet 650 MG PO (21:41)
[2023-08-29] MEDS: fluoxetine 20 mg Capsule PO (05:59)
[2023-08-29 06:00] VITALS: BP 114/77; PULSE 18; RESP 17; TEMP 36.2; O2SAT 96
[2023-08-29] MEDS: nicotine 21 mg Patch 1 PATCH TRANSDERMA (09:05)
[2023-08-29] MEDS: ARIPiprazole 10 mg Tablet PO (09:05)
[2023-08-29] MEDS: multivitamin therapeutic Tablet 1 TAB PO (09:06)
[2023-08-29] MEDS: thiamine 100 mg Tablet PO (09:06)
[2023-08-29] MEDS: folic acid 1 mg Tablet PO (09:06)
[2023-08-29] MEDS: acetaminophen 325 mg Tablet 650 MG PO (09:09)
[2023-08-29] MEDS: ondansetron 4 MG Tablet PO (09:09)
[2023-08-29] MEDS: OLANZapine 5 mg ODT PO (11:22)
[2023-08-29] MEDS: ibuprofen 600 mg Tablet PO ×2 (12:07→18:22)
[2023-08-29 14:00] VITALS: BP 125/84; PULSE 96; RESP 18; TEMP 36.6; O2SAT 98
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
[2023-08-29] MEDS: hyDROXYzine 25 mg Capsule 50 MG PO (15:01)
[2023-08-29 20:00] VITALS: BP 130/86; PULSE 97; RESP 17; TEMP 36.4; O2SAT 100
[2023-08-29] MEDS: quetiapine 100 mg Tablet PO (20:03)
[2023-08-29] MEDS: trazodone 100 mg Tablet PO (20:03)
[2023-08-30] MEDS: acetaminophen 325 mg Tablet 650 MG PO (03:00)
[2023-08-30] MEDS: ondansetron 4 MG Tablet PO (03:01)
[2023-08-30 06:00] VITALS: BP 119/77; PULSE 78; RESP 17; TEMP 36.6; O2SAT 96
[2023-08-30] MEDS: fluoxetine 20 mg Capsule PO (06:36)
[2023-08-30] MEDS: folic acid 1 mg Tablet PO (08:27)
[2023-08-30] MEDS: ARIPiprazole 10 mg Tablet PO (08:27)
[2023-08-30] MEDS: LORazepam 2 mg Tablet PO (08:27)
[2023-08-30] MEDS: multivitamin therapeutic Tablet 1 TAB PO (08:27)
[2023-08-30] MEDS: thiamine 100 mg Tablet PO (08:27)
--- NOTE | 2023-08-30 08:28 | PC.NURSE ---
ADMINISTERED 2MG ATIVAN TO PATIENT FOR CIWA OF 13
--- NOTE | 2023-08-30 08:40 | PC.NURSE ---
During morning assessment, patient rated current depression 7/10 and anxiety 9/10. When asked about the cause, p[atient stated I don't know, life . Patient denies SI, HI, AVH. When asked if he had inteded to commit suicide by running into traffic, patient stated, i didn't actually run into traffic, but would have. Patient reports nausea and vomiting. Vomiting started last night. Patient has headache, shakiness as well. Denies knowingly being around sick individuals recently.
[2023-08-30] MEDS: ibuprofen 600 mg Tablet PO (10:37)
[2023-08-30] MEDS: hyDROXYzine 25 mg Capsule 50 MG PO (10:37)
--- NOTE | 2023-08-30 10:38 | P.NPUPN_ITS ---
Subjective NPU Subjective: Patient presented today reporting that he is doing fine. We discussed the fact that discusses that his sister revealed that he may not return there. His brother is reporting that he might be open to a very short stay because there is planning for something as an alternative. Patient seems to be quite focused on discharge and not necessarily on improvement. He was open to the Prozac being discontinued as he reported being up to 60 mg at 1 point without feeling significant improvement. We discussed adding Lexapro at some point. Mental Status Exam MSE Comments: This is a well-nourished, well-developed, white male, in hospital scrubs, with adequate grooming and eye contact. No abnormal movements, except for psychomotor retardation and a robotic nature to his movement. Cooperative with exam in mild distress. Speech was normal rate and volume with monotony and absent significant prosody. Mood described as a bit frustrated, a little depressed; affect subdued and robotic. Thought process, organized. Thought content: patient denied any suicidal or homicidal ideation; patient endorses slight paranoia currently; he denied current auditory hallucinations but did report there presents as he was frustrated with his sister. Attention, concentration, and memory appeared intact, but none were formally tested. Alert and oriented times three. Insight and judgment appear limited. Impulse control is impaired. Vitals/I&O/Wt Last Vital Signs Temp 97.9 F 08/30/23 06:00 Pulse 78 08/30/23 06:00 Resp 17 08/30/23 06:00 BP 119/77 08/30/23 06:00 Pulse Ox 96 08/30/23 06:00 O2 Del Method Room Air 08/30/23 06:00 Weight last 48 hrs Weight 81.647 kg Data NPU 08/28/23 13:59 08/28/23 13:59 A&P Assessment and plan (1) Suicidal ideations: (2) Hallucinations: (3) PTSD (post-traumatic stress disorder): (4) Schizophrenia: (5) Sibling relational problem: Plan This is a 33-year-old, white male, with a history of schizophrenia but very gentile ited history of treatment or exposure to different medications 1. Continue current medication except: 2. Discontinue his Prozac we will start Lexapro in the next few days possibly for discharge. 3. Continue oral Abilify for couple days and gave Abilify Maintena injection 400 mg IM q. monthly at last hospitalization. We will attempt to discharge with a plan to switch over to Abilify Asimtufii. 4. Encourage individual, group, and milieu therapy. 5. Continue q-15-minute checks for safety. Involuntary Hold Information 96 Hour Hold: 96 Hour Involuntary Admission: No Attestations NPU Medical Necessity Statement*: Inpatient hospitalization is medically necessary and the clinically appropriate intervention, at this time. We will monitor medications and make changes as indicated. Likely length of stay is 1-3 days. Coding Level of Care Code Acute Code for Chg Fwd Diagnoses Suicidal ideations R45.851 Hallucinations R44.3 PTSD (post-traumatic stress disorder) F43.10 Schizophrenia F20.9 Sibling relational problem Z63.8
[2023-08-30] MEDS: nicotine 21 mg Patch 1 PATCH TRANSDERMA (10:47)
[2023-08-30 14:00] VITALS: BP 127/90; PULSE 103; RESP 16; TEMP 36.8; O2SAT 99
[2023-08-30] MEDS: OLANZapine 5 mg ODT PO (16:44)
[2023-08-30] MEDS: trazodone 100 mg Tablet PO (20:05)
[2023-08-30] MEDS: quetiapine 100 mg Tablet PO (20:05)
[2023-08-30 20:07] VITALS: BP 123/82; PULSE 95; RESP 16; TEMP 36.8; O2SAT 97
[2023-08-31 06:00] VITALS: BP 117/78; PULSE 75; RESP 16; O2SAT 93
[2023-08-31] MEDS: nicotine 21 mg Patch 1 PATCH TRANSDERMA (08:37)
[2023-08-31] MEDS: ondansetron 4 MG Tablet PO (08:38)
[2023-08-31] MEDS: multivitamin therapeutic Tablet 1 TAB PO (08:38)
[2023-08-31] MEDS: thiamine 100 mg Tablet PO (08:38)
[2023-08-31] MEDS: acetaminophen 325 mg Tablet 650 MG PO ×2 (08:38→16:50)
[2023-08-31] MEDS: folic acid 1 mg Tablet PO (08:38)
[2023-08-31 14:00] VITALS: BP 136/81; PULSE 95; RESP 14; TEMP 36.9; O2SAT 96
[2023-08-31] MEDS: hyDROXYzine 25 mg Capsule 50 MG PO (18:08)
[2023-08-31] MEDS: ibuprofen 600 mg Tablet PO (18:09)
--- NOTE | 2023-08-31 18:46 | PC.NURSE ---
Pt removed his nicotine patch at 1300 today.
[2023-08-31] MEDS: nicotine 2 mg Gum BUCCAL ×2 (18:47→21:19)
[2023-08-31] MEDS: quetiapine 100 mg Tablet PO (19:56)
[2023-08-31] MEDS: trazodone 100 mg Tablet PO (19:56)
[2023-08-31 20:12] VITALS: BP 136/94; PULSE 62; RESP 17; TEMP 36.9; O2SAT 95
--- NOTE | 2023-08-31 22:51 | W.PM.NPUPNS ---
Subjective NPU Subjective: Patient presented today being fairly lethargic. Attempts to really engage him about the possibility of discharge today are limited as he kept falling back asleep. He was unclear about why he was so tired and we talked about the possibility of discharge over the next 48 hours. He denies any issues with the oral Abilify and Prozac being discontinued we once again discussed the risks, benefits and alternatives of eventually restarting Lexapro 10 mg p.o. every morning. Mental Status Exam MSE Comments: This is a well-nourished, well-developed, white male, in hospital scrubs, with adequate grooming and eye contact. No abnormal movements, except for psychomotor retardation and a robotic nature to his movement. Cooperative with exam in mild distress. Speech was normal rate and volume with monotony and absent significant prosody. Mood described as a bit frustrated, a little depressed; affect subdued and robotic. Thought process, organized. Thought content: patient denied any suicidal or homicidal ideation; patient endorses slight paranoia currently; he denied current auditory hallucinations but did report there presents as he was frustrated with his sister. Attention, concentration, and memory appeared intact, but none were formally tested. Alert and oriented times three. Insight and judgment appear limited. Impulse control is impaired. Vitals/I&O/Wt Last Vital Signs Temp 98.4 F 08/31/23 20:12 Pulse 62 08/31/23 20:12 Resp 17 08/31/23 20:12 BP 136/94 08/31/23 20:12 Pulse Ox 95 08/31/23 20:12 O2 Del Method Room Air 08/31/23 20:12 Data NPU 08/28/23 13:59 08/28/23 13:59 A&P Assessment and plan (1) Suicidal ideations: (2) Hallucinations: (3) PTSD (post-traumatic stress disorder): (4) Schizophrenia: (5) Sibling relational problem: Plan This is a 33-year-old, white male, with a history of schizophrenia but very limited history of treatment or exposure to different medications 1. Continue current medication except: 2. Discontinue his Prozac we will start Lexapro in the next few days possibly for discharge. 3. Discontinue oral Abilify. He was given Abilify Maintena injection 400 mg IM q. monthly at last hospitalization. We will attempt to discharge with a plan to switch over to Abilify Asimtufii. 4. Encourage individual, group, and milieu therapy. 5. Continue q-15-minute checks for safety. Involuntary Hold Information 96 Hour Hold: 96 Hour Involuntary Admission: No Attestations NPU Medical Necessity Statement*: Inpatient hospitalization is medically necessary and the clinically appropriate intervention, at this time. We will monitor medications and make changes as indicated. Likely length of stay is 1-3 days. Coding Level of Care Code Acute Code for Chg Fwd Diagnoses Suicidal ideations R45.851 Hallucinations R44.3 PTSD (post-traumatic stress disorder) F43.10 Schizophrenia F20.9 Sibling relational problem Z63.8
[2023-09-01] MEDS: acetaminophen 325 mg Tablet 650 MG PO (03:02)
[2023-09-01 06:00] VITALS: BP 124/80; PULSE 89; RESP 16; TEMP 37.1; O2SAT 97
[2023-09-01] MEDS: ibuprofen 600 mg Tablet PO (06:19)
--- NOTE | 2023-09-01 07:26 | PC.NURSE ---
During morning assessment, patient reports good sleep. Patient has a headache but otherwise feels fine, per patient. Patient denies depression, rates anxiety 4/10, related to being ready to leave. Denies SI, HI, AVH.
[2023-09-01] MEDS: folic acid 1 mg Tablet PO (07:31)
[2023-09-01] MEDS: thiamine 100 mg Tablet PO (07:31)
[2023-09-01] MEDS: multivitamin therapeutic Tablet 1 TAB PO (07:32)
[2023-09-01] MEDS: nicotine 21 mg Patch 1 PATCH TRANSDERMA (07:32)
[2023-09-01] MEDS: hyDROXYzine 25 mg Capsule 50 MG PO (08:56)
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
[2023-09-01 10:10] VITALS: BP 124/80; PULSE 89; RESP 16; TEMP 37.1; O2SAT 97
[2023-09-01] MEDS: nicotine 2 mg Gum BUCCAL (11:04)
--- NOTE | 2023-09-01 11:04 | PC.NURSE ---
patient removed mckenna patch at 0845. patient stated that he doesn't like how it makes him feel.
[2023-09-01] MEDS: ondansetron 4 MG Tablet PO (13:08)
== END 2023-09-01 13:15 | disposition home or self-care (01) | DRG 885 ==
LOC: ER 14:19 → NP 15:06
PROVIDERS: Admitting Provider Psychiatry & Neurology Psychiatry; Emergency Provider Physician Assistant; PCP Family Medicine; Visit Provider Psychiatry & Neurology Psychiatry
DX: F20.9 Schizophrenia, unspecified (principal); R45.851 Suicidal ideations; F43.10 Post-traumatic stress disorder, unspecified; F17.210 Nicotine dependence, cigarettes, uncomplicated; Z81.3 Family history of other psychoactive substance abuse and dependence
CPT/HCPCS: 36415; 80053; 80306; 80307; 85025; 97150; 97165; 99285; Q0162

== ENCOUNTER 2023-09-03 00:32 | Emergency (ER) | payer MEDICAID, SELFPAY ==
[2023-09-03 00:35] VITALS: BP 126/106; PULSE 107; RESP 18; TEMP 37; O2SAT 95; BMI 25.1
[2023-09-03 00:48] VITALS: PULSE 84; RESP 17; O2SAT 93
--- NOTE | 2023-09-03 00:49 | XRR_ITS ---
PROCEDURE INFORMATION: Exam: XR Right Foot Exam date and time: 09/03/2023 1:17 AM Age: 33 years old Clinical indication: Pain and injury or trauma; Foot; Right; Patient HX: Fall 2 days ago, pain to middle of 2nd and 3rd metatarsal TECHNIQUE: Imaging protocol: Radiologic exam of the right foot. Views: 3 or more views. COMPARISON: No relevant prior studies available. FINDINGS: Bones/joints: No acute fracture or dislocation. Old healed fracture deformity of the 4th metatarsal noted. Soft tissues: Normal. XR/XR foot RT min 3V* [id number] IMPRESSION: No acute findings.
--- NOTE | 2023-09-03 01:53 | W.ED.EXTPRO ---
HPI - Extremity Problem General: Chief complaint: Extremity Problem,Nontraumatic Stated complaint: right foot injury Time Seen by Provider: 09/03/23 00:45 History of Present Illness: Patient presents to the ER with complaints of a fall and right foot pain times a couple days. Patient states that it hurts worse when he puts weight on it. Patient states the pain is in the midfoot. Patient also has a broken toe on his left foot and does not know if the way he walks due to it is causing more pain on the right foot. Review of Systems General: Reports: 10 or more systems reviewed and unremarkable except in HPI and below PFSH ED PFSH: Medical History PTSD (post-traumatic stress disorder) Schizophrenia Surgical History History of thumb surgery Family History Denies family history of Diabetes CAD (coronary artery disease) Clotting disorder Dementia Hyperlipidemia Psychiatric illness Chronic kidney disease (CKD) Anesthesia complication Bleeding disorder Lung disease Cancer Hypertension Stroke Social History Smoking and tobacco/nicotine status: current every day tobacco/nicotine user cigarettes Packs smoked per day: 1 Alcohol intake: current Alcohol intake frequency: few times a week Alcohol type: beer Substance/Drug Use: never Lives independently: Yes Current occupational status: employed Special kristen needs: No Agree to transfusion: Yes Physical Exam Const: COMMON NORMALS: no acute distress, average body habitus, patient oriented x3, no limitations, healthy appearing, alert and well nourished HENMT: COMMON NORMALS: normocephalic, atraumatic, hearing grossly normal bilaterally, external ears normal, Normal external nose present, moist oral mucous membranes and oropharynx normal HEAD & SCALP: normocephalic and atraumatic NOSE: Normal external nose present EXTERNAL EAR: Yes external ears normal Neck/C-Spine: COMMON NORMALS: no JVD Chest: COMMONS NORMALS: normal inspection of the chest and normal palpation of entire chest wall Resp: COMMON NORMALS: normal respiratory effort, No retractions, No use of accessory muscles and clear to auscultation bilaterally AUSCULTATION: clear to auscultation bilaterally Cardio: COMMON NORMALS: no JVD, regular rate, regular rhythm, S1 normal heart sound present, S2 normal heart sound present, No gallops present (Cardio), No clicks present (Cardio), No murmurs present (Cardio) and No rub (Cardio) RATE: regular rate RHYTHM: regular rhythm HEART SOUNDS: S1 normal heart sound present and S2 normal heart sound present GI: COMMON NORMALS: Normal to inspection, nondistended, normoactive bowel sounds present, Soft to palpation, non-tender, No hepatosplenomegaly present and no masses PALPATION: Yes Soft to palpation and Yes No hepatosplenomegaly present Extremity: OTHER: Pain with palpation over right midfoot Neuro: COMMON NORMALS: patient oriented x3 SENSORIUM/ORIENTATION: Yes alert Course Vital Signs: Vital signs: Vital Signs Temperature 98.6 F 09/03/23 00:35 Pulse Rate 84 09/03/23 00:48 Respiratory Rate 17 09/03/23 00:48 Blood Pressure 126/106 09/03/23 00:35 Pulse Oximetry 93 09/03/23 00:48 Oxygen Delivery Me thod Room Air 09/03/23 00:35 MDM - Extremity (Nontraumatic) Medical Decision Making X-ray of right foot was obtained which showed no acute findings. Patient be discharged home to follow-up with his PCP on an as-needed basis. Differential Diagnosis Unlikely herpes zoster, gout, cellulitis, superficial thrombophlebitis, deep venous thrombosis of upper extremity, lower extremity edema or deep vein thrombosis of lower extremity Medical Records I reviewed the patient's medical records. Lab Data I reviewed the patient's lab results. Radiology Impressions Foot X-Ray 09/03/23 00:49 IMPRESSION: No acute findings. All radiology interpretation(s) finalized by discharge Discharge Plan Discharge Patient Disposition: Home Clinical Impression: Acute pain of right foot Condition: Stable Prescriptions: No Action trazodone 100 mg tablet See Rx Instructions .ROUTE .COMPLEX Qty: 14 0RF Dose Instruction: Take 1 tablet by mouth once daily Rx Instructions: Take 1 tablet by mouth once daily quetiapine 100 mg Tablet 100 mg PO BEDTIME 30 Days Qty: 30 1RF Abilify Maintena 400 mg suspension,extended rel recon 400 mg IM Q28D 28 Days Qty: 1 1RF Rx Instructions: Next injection 09/13/2023 then as directed hydroxyzine HCl 25 mg tablet 25 mg PO BID PRN (Reason: itching) Qty: 60 1RF acetaminophen 500 mg Tablet 2,000 mg PO Q6H PRN (Reason: Pain) aripiprazole 10 mg tablet 5 - 10 mg PO DAILY Rx Instructions: Stop taking in 14 days. Should resume if there is any problem with obtaining the Abilify Maintena injection in 1 month. fluoxetine 20 mg capsule 20 mg PO QAM Vitamin B-1 (mononitrate) 100 mg tablet 100 mg PO QAM Vitamin B-1 (mononitrate) 100 mg Tablet 100 mg PO DAILY 30 Days Qty: 30 1RF Lexapro 10 mg tablet 10 mg PO DAILY 30 Days Qty: 30 1RF Rx Instructions: Start half tab for 6 days then full tab thereafter Discharge Orders: Discharge ED (Routine); Ordered 09/03/23 Ordered By: Santiago Mendoza Referrals: Carlos Holm MD [Primary Care Provider] - 1 week Patient Instructions: Arthralgia (ED) Activity Restrictions/Additional Instructions: your x-ray did not show any acute abnormality of your foot. Please follow-up with your primary care practitioner within the next 7 to 10 days for further evaluation and treatment as needed. You may take [id number] Tylenol and/or Motrin as needed for pain. Coding Level of Care Code ED Adjunct Psychology Faculty Member for Jordan Arellano
[2023-09-03 04:22] VITALS: BP 127/88; PULSE 85; RESP 18; O2SAT 96
== END 2023-09-03 04:22 | disposition home or self-care (01) ==
PROVIDERS: Emergency Provider Emergency Medicine; PCP Family Medicine
DX: M79.671 Pain in right foot (principal); F17.210 Nicotine dependence, cigarettes, uncomplicated
CPT/HCPCS: 73630; 99283

== ENCOUNTER 2023-09-04 12:09 | Inpatient (IN) | payer MEDICAID, SELFPAY ==
[2023-09-04 12:13] VITALS: BP 149/96; PULSE 98; RESP 18; TEMP 36.8; O2SAT 97
--- NOTE | 2023-09-04 12:22 | W.ED.PSYCHS ---
HPI - Psych General: Chief Complaint: Psychiatric Symptoms Stated Complaint: SI Time Seen by Provider: 09/04/23 12:13 Source: patient and EMS Mode of arrival: EMS Limitations: no limitations History of Present Illness: 33-year-old male who history of schizophrenia along with psychiatric issues he had been admitted to the psych [facility] multiple times with the last admission just 3 days ago he states that once he is discharged he was at his sister's house but had been kicked out and he is now homeless he states he is having some slight suicidal thoughts today denies any worsening proving factors. Associated symptoms: Reports depression and suicidal ideation Review of Systems Const: Denies: fever(s), chills, body aches or change in appetite Eyes: Denies: blurry vision or eye discomfort ENMT: Denies: throat pain or dental pain Card: Denies: chest pain Resp: Denies: dyspnea GI: Denies: abdominal pain, nausea, vomiting or diarrhea : Denies: dysuria Musc: Denies: neck pain or back pain Skin/Breast: Denies: rash Neuro: Denies: headache(s) Psych: Reports: depression and suicidal ideation PFSH ED PFSH: Medical History PTSD (post-traumatic stress disorder) Surgical History History of thumb surgery Family History Denies family history of Diabetes CAD (coronary artery disease) Clotting disorder Dementia Hyperlipidemia Psychiatric illness Chronic kidney disease (CKD) Anesthesia complication Bleeding disorder Lung disease Cancer Hypertension Stroke Social History Smoking and tobacco/nicotine status: current every day tobacco/nicotine user cigarettes Packs smoked per day: 1 Alcohol intake: current Alcohol intake frequency: few times a week Alcohol type: beer Substance/Drug Use: never Lives independently: Yes Current occupational status: employed Special kristen needs: No Agree to transfusion: Yes Physical Exam Const: COMMON NORMALS: no acute distress, patient oriented x3 and healthy appearing HENMT: COMMON NORMALS: normocephalic and atraumatic HEAD & SCALP: normocephalic and atraumatic Neck/C-Spine: COMMON NORMALS: full ROM and supple Chest: COMMONS NORMALS: normal inspection of the chest Resp: COMMON NORMALS: normal respiratory effort Cardio: COMMON NORMALS: regular rate, regular rhythm and No murmurs present (Cardio) RATE: regular rate RHYTHM: regular rhythm GI: COMMON NORMALS: Normal to inspection, nondistended, normoactive bowel sounds present, Soft to palpation, non-tender and no masses PALPATION: Yes Soft to palpation Extremity: COMMON NORMALS: normal to inspection and full ROM Neuro: COMMON NORMALS: patient oriented x3, moves all extremities and no focal motor deficits Psych: COMMON NORMALS: mental status grossly normal, Normal thought process present and cooperative THOUGHT PROCESS: Normal thought process present Skin: COMMON NORMALS: no rashes or lesions noted and no wounds GENERAL SKIN EXAM: no rashes or lesions noted Course Vital Signs: Vital signs: Vital Signs Temperature 98.2 F 09/04/23 12:13 Pulse Rate 98 09/04/23 12:13 Respiratory Rate 18 09/04/23 12:13 Blood Pressure 149/96 09/04/23 12:13 Pulse Oximetry 97 09/04/23 12:13 Oxygen Delivery Me thod Room Air 09/04/23 12:13 MDM - Psych Medical Decision Making Patient presents for suicidal ideation he is voluntarily wanting help I did speak to Dr. Gee who knows the patient's well and will admit at this time. Medical Records I reviewed the patient's medical records. Lab Data I reviewed the patient's lab results. 09/04/23 12:38 09/04/23 12:38 Laboratory Results WBC 7.51 10^3/uL (3.29-11.43) 09/04/23 12:38 RBC 5.37 10^6/uL (3.85-5.65) 09/04/23 12:38 Hgb 15.70 g/dL (11.27-16.99) 09/04/23 12:38 Hct 46.4 % (37-53) 09/04/23 12:38 MCV 86.4 fl (82-101) 09/04/23 12:38 MCH 29.2 pg (27-33) 09/04/23 12:38 MCHC 33.8 g/dL (30-55) 09/04/23 12:38 RDW 13.4 % (12.1-15.1) 09/04/23 12:38 Plt Count 371 10^3/cmm (157-399) 09/04/23 12:38 MPV 8.8 fL (7.4-10.4) 09/04/23 12:38 Neut % (Auto) 71.2 % 09/04/23 12:38 Lymph % (Auto) 17.2 % 09/04/23 12:38 Cocke % (Auto) 10.7 % 09/04/23 12:38 Eos % (Auto) 0.1 % 09/04/23 12:38 Baso % (Auto) 0.5 % 09/04/23 12:38 Neut # (Auto) 5.35 10^3/uL (1.8-7.7) 09/04/23 12:38 Lymph # (Auto) 1.3 10^3/uL (0.8-4.8) 09/04/23 12:38 Cocke # (Auto) 0.8 10^3/uL (0.2-0.9) 09/04/23 12:38 Eos # (Auto) 0.0 10^3/uL (0.0-0.8) 09/04/23 12:38 Baso # (Auto) 0.0 10^3/uL (0.0-0.1) 09/04/23 12:38 Nucleated RBC % (auto) 0 % 09/04/23 12:38 Nucleated RBCs # 0.0 /100WBC 09/04/23 12:38 Sodium 136 mmol/L (136-145) 09/04/23 12:38 Potassium 4.0 mmol/L (3.5-5.1) 09/04/23 12:38 Chloride 98 mmol/L (98-107) 09/04/23 12:38 Carbon Dioxide 28 mmol/L (22-29) 09/04/23 12:38 Anion Gap 14.0 (5-19) 09/04/23 12:38 BUN 9 mg/dL (6-20) 09/04/23 12:38 Creatinine 0.9 mg/dL (0.7-1.2) 09/04/23 12:38 GFR Calculation 96.6 mL/min (90-130) 09/04/23 12:38 Glucose 95 mg/dL (65-115) 09/04/23 12:38 Calculated Osmolality 280 mOsm/kg (285-295) L 09/04/23 12:38 Calcium 9.2 mg/dL (8.5-10.5) 09/04/23 12:38 Total Bilirubin 1.0 mg/dL (0.15-1.2) 09/04/23 12:38 AST 24 U/L (0-40) 09/04/23 12:38 ALT 20 U/L (0-41) 09/04/23 12:38 Alkaline Phosphatase 110 U/L (40-130) 09/04/23 12:38 Total Protein 7.3 g/dL (6.6-8.7) 09/04/23 12:38 Albumin 4.6 g/dL (3.5-5.2) 09/04/23 12:38 Globulin 2.7 g/dL (1.3-4.6) 09/04/23 12:38 Salicylates < 0.3 mg/dL (3-10) L 09/04/23 12:38 Acetaminophen < 5.0 ug/mL (10-30) L 09/04/23 12:38 Ethyl Alcohol < 10 mg/dL (0-10) 09/04/23 12:38 No radiology studies performed this visit Discharge Plan Discharge Patient Disposition: Admitted As Inpatient Clinical Impression: Suicidal ideation Condition: Stable Prescriptions: No Action trazodone 100 mg tablet See Rx Instructions .ROUTE .COMPLEX Qty: 14 0RF Dose Instruction: Take 1 tablet by mouth once daily Rx Instructions: Take 1 tablet by mouth once daily quetiapine 100 mg Tablet 100 mg PO BEDTIME 30 Days Qty: 30 1RF Abilify Maintena 400 mg suspension,extended rel recon 400 mg IM Q28D 28 Days Qty: 1 1RF Rx Instructions: Next injection 09/13/2023 then as directed hydroxyzine HCl 25 mg tablet 25 mg PO BID PRN (Reason: itching) Qty: 60 1RF acetaminophen 500 mg Tablet 2,000 mg PO Q6H PRN (Reason: Pain) aripiprazole 10 mg tablet 5 - 10 mg PO DAILY Rx Instructions: Stop taking in 14 days. Should resume if there is any problem with obtaining the Abilify Maintena injection in 1 month. fluoxetine 20 mg capsule 20 mg PO QAM thiamine mononitrate (vit B1) [Vitamin B-1 (mononitrate)] 100 mg Tablet 100 mg PO DAILY 30 Days Qty: 30 1RF escitalopram oxalate [Lexapro] 10 mg tablet 10 mg PO DAILY 30 Days Qty: 30 1RF Rx Instructions: Start half tab for 6 days then full tab thereafter Referrals: Carlos Holm MD [Primary Care Provider] - Coding Level of Care Code ED [employer] for Jordan Arellano
[2023-09-04 12:47] LABS: Basophils % 0.5 %; Eosinophils % 0.1 %; Hematocrit 46.4 % (37-53); Lymphocytes # 1.3 10^3/uL (0.8-4.8); Lymphocytes % 17.2 %; Mean Corpuscular HGB Conc 33.8 g/dL (30-55); Mean Corpuscular Hemoglobin 29.2 pg (27-33); Mean Corpuscular Volume 86.4 fl (82-101); Mean Platelet Volume 8.8 fL (7.4-10.4); Monocytes # 0.8 10^3/uL (0.2-0.9); Monocytes % 10.7 %; Neutrophils # 5.35 10^3/uL (1.8-7.7); Neutrophils % 71.2 %; Nucleated Red Blood Cells % 0 %; Platelet Count 371 10^3/cmm (157-399); Red Blood Count 5.37 10^6/uL (3.85-5.65); Red Cell Distribution Width 13.4 % (12.1-15.1); White Blood Count 7.51 10^3/uL (3.29-11.43)
[2023-09-04 13:11] LABS: Alanine Aminotransferase 20 U/L (0-41); Albumin Level 4.6 g/dL (3.5-5.2); Alkaline Phosphatase 110 U/L (40-130); Aspartate Amino Transferase 24 U/L (0-40); Blood Urea Nitrogen 9 mg/dL (6-20); Calcium 9.2 mg/dL (8.5-10.5); Carbon Dioxide 28 mmol/L (22-29); Chloride 98 mmol/L (98-107); Globulin 2.7 g/dL (1.3-4.6); Glomerular Filtration Rate 96.6 mL/min (90-130); Glucose 95 mg/dL (65-115); Osmolality Calculated 280 mOsm/kg (285-295); Sodium 136 mmol/L (136-145); Total Protein 7.3 g/dL (6.6-8.7)
[2023-09-04 13:12] LABS: Acetaminophen < 5.0 ug/mL (10-30); Alcohol Level < 10 mg/dL (0-10); Salicylate < 0.3 mg/dL (3-10)
[2023-09-04 14:11] LABS: Amphetamines Screen Urine Negative (Negative); Barbiturates Screen Urine Negative (Negative); Benzodiazepines Screen Urine Negative (Negative); Cocaine Screen Urine Negative (Negative); Opiate Screen Urine Negative (Negative); PCP Screen Urine Negative (Negative); THC Screen Urine Negative (Negative)
[2023-09-04 15:22] VITALS: BP 132/92; PULSE 112; RESP 15; TEMP 36.9; O2SAT 97
[2023-09-04] MEDS: hyDROXYzine 25 mg Capsule 50 MG PO (15:39)
[2023-09-04] MEDS: nicotine 21 mg Patch 1 PATCH TRANSDERMA (15:39)
--- NOTE | 2023-09-04 16:07 | PC.NURSE ---
Patient states he is very paranoid and believes it is due to him not taking his medication and drinking 6-7 shots of fireball yesterday. However, his tox screen did not show any alcohol content. Patient says he was living with his sister and they got into an argument, resulting in him becoming homeless and sleeping outside for the last 3 days. He then began having thoughts of hurting himself by jumping in front of a semi truck. Patient then decided to stop at [email or web address] and asked them to call 911. He reports a lack of appetite that he believes is possibly due to his drinking and lack of sleep. Patient also endorses being very weak and shaky. He does admit to not being medication compliant. However, he says when he received his abilify injection this last month it caused his jaw to become tight. He then asked for a nicotine patch and medication for anxiety, which were both given. Patient then laid down in bed and fell asleep shortly after.
[2023-09-04] MEDS: ondansetron 4 MG Tablet PO (17:43)
[2023-09-04] MEDS: OLANZapine 5 mg ODT PO (18:05)
[2023-09-04] MEDS: trazodone 100 mg Tablet PO (20:22)
[2023-09-04] MEDS: haloperidol 5 mg Tablet PO (20:22)
[2023-09-04] MEDS: quetiapine 100 mg Tablet PO (20:22)
--- NOTE | 2023-09-04 21:11 | PC.NURSE ---
IN BED RESTING AROUSES TO VOICE. PT DENIES SI/HI, ENDORSES HEARING VOICES THAT ARE NEGATIVE IN NATURE. DENIES VH. PT IT WITHDRAWN AND NOTED TO HAVE A FLAT AFFECT. PT WAS OFFERED HALDOL FOR THE VOICES AND PT ACCEPTED. PT WAS GIVEN HALDOL 5 MG ORDERED FOR ANXIETY. PT TOOK MEDICATIONS, GIVEN A SNACK AND OFFERED PO FLUIDS. ALL QUESTIONS ANSWERED AND SUPPORT VOICED.
[2023-09-04 21:20] VITALS: BP 120/77; PULSE 97; RESP 16; TEMP 36.9; O2SAT 94
[2023-09-05 06:00] VITALS: RESP 16
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
[2023-09-05] MEDS: fluoxetine 20 mg Capsule PO (09:10)
[2023-09-05] MEDS: hyDROXYzine 25 mg Capsule 50 MG PO ×2 (09:10→18:01)
[2023-09-05] MEDS: thiamine 100 mg Tablet PO (09:10)
[2023-09-05] MEDS: ARIPiprazole 10 mg Tablet PO (09:10)
--- NOTE | 2023-09-05 09:29 | PC.NURSE ---
During morning assessment, patient reports high anxiety. Patient reports some mild depression. Patient currently denies SI. Patient denies HI. Patient reports some auditory hallucinations, unsure of what is being said.
[2023-09-05] MEDS: nicotine 21 mg Patch 1 PATCH TRANSDERMA (11:22)
[2023-09-05] MEDS: OLANZapine 5 mg ODT PO (11:24)
--- NOTE | 2023-09-05 11:24 | PC.NURSE ---
Administered 50mg Vistaril to patient for moderate to severe anxiety. After about one hour, patient still anxious. Administered Zyprexa 5mg ODT. will continue to monitor.
[2023-09-05 14:00] VITALS: BP 128/85; PULSE 104; RESP 18; TEMP 36.6; O2SAT 96
[2023-09-05] MEDS: haloperidol 5 mg Tablet PO (14:37)
--- NOTE | 2023-09-05 18:02 | PC.NURSE ---
Patient anxious, rates anxiety 8/10. Patient states that he is unsure of the cause for his anxiety. Patient given 50mg vistaril PO. Patient returned to dayroom.
[2023-09-05] MEDS: trazodone 100 mg Tablet PO (19:47)
[2023-09-05] MEDS: quetiapine 100 mg Tablet PO (19:47)
[2023-09-05 20:00] VITALS: BP 115/67; PULSE 83; RESP 16; TEMP 36.4; O2SAT 95
[2023-09-06 06:00] VITALS: BP 121/68; PULSE 72; RESP 16; TEMP 36.4; O2SAT 95
[2023-09-06] MEDS: ARIPiprazole 10 mg Tablet PO (08:04)
[2023-09-06] MEDS: fluoxetine 20 mg Capsule PO (08:04)
[2023-09-06] MEDS: thiamine 100 mg Tablet PO (08:04)
[2023-09-06] MEDS: OLANZapine 5 mg ODT PO ×2 (08:04→20:00)
[2023-09-06] MEDS: guaiFENesin 600 mg Tablet PO ×2 (08:04→18:00)
[2023-09-06] MEDS: nicotine 21 mg Patch 1 PATCH TRANSDERMA (08:04)
[2023-09-06] MEDS: hyDROXYzine 25 mg Capsule 50 MG PO (12:25)
[2023-09-06 14:00] VITALS: BP 113/69; PULSE 90; RESP 18; TEMP 36.8; O2SAT 93
[2023-09-06] MEDS: ondansetron 4 MG Tablet PO (14:07)
--- NOTE | 2023-09-06 17:20 | P.NPUPN_ITS ---
Subjective NPU Subjective: Patient presents today reporting that he is doing okay. He reports that he is interested in the evaluation at [facility] as well as getting into [facility]. He reports the medication is working fine and that he is starting to feel little better. He reported an openness to go to [facility] if that interview goes well today as planned. He denied any side effects of the medications. Mental Status Exam MSE Comments: This is a well-nourished, well-developed, white male, in hospital scrubs, with adequate grooming and eye contact. No abnormal movements, except for psychomotor retardation and a robotic nature to his movement. Cooperative with exam in mild distress. Speech was normal rate and volume with monotony and absent significant prosody. Mood described as I am okay I am not going to henderson out this time; affect subdued and robotic. Thought process, organized. Thought content: patient denied any suicidal or homicidal ideation; patient endorses slight paranoia currently; he denied current auditory hallucinations but reports he was hearing voices as things were getting bad prior to admission. Attention, concentration, and memory appeared intact, but none were formally tested. Alert and oriented times three. Insight and judgment appear limited. Impulse control is impaired. Vitals/I&O/Wt Last Vital Signs Temp 98.3 F 09/06/23 14:00 Pulse 90 09/06/23 14:00 Resp 18 09/06/23 14:00 BP 113/69 09/06/23 14:00 Pulse Ox 93 09/06/23 14:00 O2 Del Method Room Air 09/06/23 14:00 Data NPU 09/04/23 12:38 09/04/23 12:38 A&P Assessment and plan (1) Suicidal ideations: (2) Hallucinations: (3) PTSD (post-traumatic stress disorder): (4) Schizophrenia: (5) Sibling relational problem: Plan This is a 33-year-old, white male, with a history of schizophrenia but very limited history of treatment or exposure to different medications who presents now for the third time in 3-1/2 weeks with significant addiction as well as family conflicts and now homelessness. 1. Continue current medication except: 2. We will work with treatment team to see if there is some kind of long-term or other residential option that is possible. He is awaiting an interview by [facility]. 3. We will attempt to discharge with a plan to switch over to Abilify Asimtufii. 4. Encourage individual, group, and milieu therapy. 5. Continue q-15-minute checks for safety. Involuntary Hold Information 96 Hour Hold: 96 Hour Involuntary Admission: No Attestations NPU Medical Necessity Statement*: Inpatient hospitalization is medically necessary and the clinically appropriate intervention, at this time. We will monitor medications and make changes as indicated. Likely length of stay is three to five days. Coding Level of Care Code Acute Code for Chg Fwd Diagnoses Suicidal ideations R45.851 Hallucinations R44.3 PTSD (post-traumatic stress disorder) F43.10 Schizophrenia F20.9 Sibling relational problem Z63.8
--- NOTE | 2023-09-06 17:47 | PC.NURSE ---
pt removed nicotine patch and gave it to this nurse at 1745.
[2023-09-06] MEDS: trazodone 100 mg Tablet PO (20:00)
[2023-09-06] MEDS: quetiapine 100 mg Tablet PO (20:00)
[2023-09-06] MEDS: nicotine 2 mg Gum BUCCAL (20:00)
[2023-09-06 20:07] VITALS: BP 116/77; PULSE 100; RESP 18; TEMP 36.7; O2SAT 95
--- NOTE | 2023-09-06 20:16 | PC.NURSE ---
PT UP WALKING IN THE HALLWAYS, NO DISTRESS NOTED. DENIES PAIN. DENIES SI/HI AND VH AT THIS TIME. CONTINUES TO REPORT HEARING VOICES THAT ARE NEGATIVE IN NATURE. PT REQUESTS ANXIETY MEDICATIONS WITH BEDTIME MEDS. PT WAS GIVEN ZYDIS 5 MG ORDERED FOR REPORTED ANXIETY. PT IS NOTED TO HAVE A FLAT AFFECT AND SLOW TO RESPOND TO QUESTIONS. REPORTS ANXIETY 7/10 AND DEPRESSION 6/10, STATES HE FEELS I'M GETTING BETTER. ALL QUESTIONS ANSWERED AND SUPPORT VOICED.
[2023-09-07 06:00] VITALS: BP 132/85; PULSE 75; RESP 16; O2SAT 95
[2023-09-07] MEDS: thiamine 100 mg Tablet PO (07:03)
[2023-09-07] MEDS: ARIPiprazole 10 mg Tablet PO (07:03)
[2023-09-07] MEDS: guaiFENesin 600 mg Tablet PO ×2 (07:03→17:01)
[2023-09-07] MEDS: nicotine 21 mg Patch 1 PATCH TRANSDERMA (07:04)
[2023-09-07] MEDS: fluoxetine 20 mg Capsule PO (07:04)
--- NOTE | 2023-09-07 08:01 | P.NPUPN_ITS ---
Subjective NPU Subjective: Patient presented today reporting that he is doing okay. He reports that the people from [facility] did come over and do an interview and that he felt it went well. He reports he said they will get back to him in the next couple of days. We discussed him having some improvement in his affect and appearance and he reported feeling better. We discussed the likelihood of discharge to [facility] in the next 48 hours as long as they accept him Mental Status Exam MSE Comments: This is a well-nourished, well-developed, white male, in hospital scrubs, with adequate grooming and eye contact. No abnormal movements, except for psychomotor retardation and a robotic nature to his movement. Cooperative with exam in mild distress. Speech was normal rate and volume with monotony and absent significant prosody. Mood described as a little better affect subdued and slightly less robotic. Thought process, organized. Thought content: patient denied any suicidal or homicidal ideation; patient endorses slight paranoia currently; he denied current auditory hallucinations but reports he was hearing voices as things were getting bad prior to admission. Attention, concentration, and memory appeared intact, but none were formally tested. Alert and oriented times three. Insight and judgment appear limited. Impulse control is impaired. Vitals/I&O/Wt Last Vital Signs Temp 98.0 F 09/06/23 20:07 Pulse 75 09/07/23 06:00 Resp 16 09/07/23 06:00 BP 132/85 09/07/23 06:00 Pulse Ox 95 09/07/23 06:00 O2 Del Method Room Air 09/06/23 20:07 Data NPU 09/04/23 12:38 09/04/23 12:38 A&P Assessment and plan (1) Suicidal ideations: (2) Hallucinations: (3) PTSD (post-traumatic stress disorder): (4) Schizophrenia: (5) Sibling relational problem: Plan This is a 33-year-old, white male, with a history of schizophrenia but very limited history of treatment or exposure to different medications who presents now for the third time in 3-1/2 weeks with significant addiction as well as family conflicts and now homelessness. 1. Continue current medication except: 2. We will work with treatment team to see if there is some kind of residential or other residential option that is possible. He is awaiting an interview by [facility]. 3. We will attempt to discharge with a plan to switch over to Abilify Asimtufii. 4. Encourage individual, group, and milieu therapy. 5. Continue q-15-minute checks for safety. Involuntary Hold Information 96 Hour Hold: 96 Hour Involuntary Admission: No Attestations NPU Medical Necessity Statement*: Inpatient hospitalization is medically necessary and the clinically appropriate intervention, at this time. We will monitor medications and make changes as indicated. Likely length of stay is 2-4 days. Coding Level of Care Code Acute Code for Chg Fwd Diagnoses Suicidal ideations R45.851 Hallucinations R44.3 PTSD (post-traumatic stress disorder) F43.10 Schizophrenia F20.9 Sibling relational problem Z63.8
[2023-09-07] MEDS: hyDROXYzine 25 mg Capsule 50 MG PO ×2 (08:58→16:49)
[2023-09-07] MEDS: acetaminophen 325 mg Tablet 650 MG PO ×2 (08:58→20:12)
--- NOTE | 2023-09-07 10:07 | PC.NURSE ---
PT CURRENTLY DENIES SI/VH/HI. PT CURRENTLY ENDORSE HEARING VOICES OF A NEGATIVE MANNER. PT ALSO CONTINUES TO ENDORSE ANXIETY AND DEPRESSION RATING THE ANXIETY A 8/10 ON A 0-10 SCALE WITH 0 BEING NONE AT ALL AND 10 BEING THE WORST. PT RATED DEPRESSION A 6/10 ON A 0-10 SCALE WITH 0 BEING NONE AT ALL AND 10 BEING THE WORST. PT WAS WILLING AND COOPERATIVE WITH ASSESSMENT. PT CURRENT NEEDS ARE MET AT THIS TIME.
[2023-09-07] MEDS: OLANZapine 5 mg ODT PO (13:05)
[2023-09-07 14:00] VITALS: BP 123/80; PULSE 89; RESP 18; TEMP 36.4; O2SAT 98
[2023-09-07] MEDS: ibuprofen 600 mg Tablet PO (14:22)
[2023-09-07 20:02] VITALS: BP 119/84; PULSE 80; RESP 13; TEMP 36.9; O2SAT 98
[2023-09-07] MEDS: trazodone 100 mg Tablet PO (20:12)
[2023-09-07] MEDS: nicotine 2 mg Gum BUCCAL (20:12)
[2023-09-07] MEDS: haloperidol 5 mg Tablet PO (20:12)
--- NOTE | 2023-09-07 20:12 | PC.NURSE ---
IN DAY ROOM WATCHING TV. PT CONTINUES TO MINIMAL EYE CONTACT AND FLAT AFFECT IS NOTED. PT REPORTS ANXIETY 05/06 AND DEPRESSION 04/06. PT REQUEST MEDICATIONS TO SLEEP AND TO REDUCE ANXIETY. RN WILL ADMINISTER HALDOL 5 MG WITH BED TIME MEDS. PT REPORTS LEFT TOE PAIN 07/07 TYLENOL 650 MG GIVEN ORDERED. PT DENIES SI/HI AT THIS TIME. REPORTS HEARING VOICES THAT ARE NEGATIVE BUT NOT BAD YESTERDAY, ALSO REPORTS SEEING SHADOWS. PT REPORTS IMPROVEMENT BUT MINIMAL IMPROVEMENT IS OBSERVED WITH PT INTERACTIONS AND BEHAVIORS. SUPPORT VOICED.
[2023-09-07] MEDS: quetiapine 100 mg Tablet PO (20:13)
[2023-09-08 06:00] VITALS: BP 103/67; PULSE 65; RESP 13; TEMP 36.5; O2SAT 96
--- NOTE | 2023-09-08 08:53 | W.PM.NPUPNS ---
Subjective NPU Subjective: Patient presented today reporting that he is doing fine with the medication. He reported being optimistic that his interview with [facility] went well and that he might able to discharge to them tomorrow. Otherwise being open to discharge to senior living. We discussed the social work team assisting him towards this end. Mental Status Exam MSE Comments: This is a well-nourished, well-developed, white male, in hospital scrubs, with adequate grooming and eye contact. No abnormal movements, except for psychomotor retardation and a robotic nature to his movement. Cooperative with exam in mild distress. Speech was normal rate and volume with monotony and absent significant prosody. Mood described as a little better affect subdued and slightly less robotic. Thought process, organized. Thought content: patient denied any suicidal or homicidal ideation; patient endorses slight paranoia currently; he denied current auditory hallucinations but reports he was hearing voices as things were getting bad prior to admission. Attention, concentration, and memory appeared intact, but none were formally tested. Alert and oriented times three. Insight and judgment appear limited. Impulse control is improving. Vitals/I&O/Wt Last Vital Signs Temp 97.7 F 09/08/23 06:00 Pulse 65 09/08/23 06:00 Resp 13 09/08/23 06:00 BP 103/67 09/08/23 06:00 Pulse Ox 96 09/08/23 06:00 O2 Del Method Room Air 09/08/23 06:00 Weight last 48 hrs Weight 81.193 kg Data NPU 09/04/23 12:38 09/04/23 12:38 A&P Assessment and plan (1) Suicidal ideations: (2) Hallucinations: (3) PTSD (post-traumatic stress disorder): (4) Schizophrenia: (5) Sibling relational problem: Plan This is a 33-year-old, white male, with a history of schizophrenia but very limited history of treatment or exposure to different medications who presents now for the third time in 3-1/2 weeks with significant addiction as well as family conflicts and now homelessness. 1. Continue current medication except: 2. We will work with treatment team to see if there is some kind of senior living or other residential option that is possible. He is awaiting an interview by [facility]. 3. We will attempt to discharge with a plan to switch over to Abilify Asimtufii. 4. Encourage individual, group, and milieu therapy. 5. Continue q-15-minute checks for safety. Involuntary Hold Information 96 Hour Hold: 96 Hour Involuntary Admission: No Attestations NPU Medical Necessity Statement*: Inpatient hospitalization is medically necessary and the clinically appropriate intervention, at this time. We will monitor medications and make changes as indicated. Likely length of stay is 1-3 days. Coding Level of Care Code Acute Code for [facility] Fwd Diagnoses Suicidal ideations R45.851 Hallucinations R44.3 PTSD (post-traumatic stress disorder) F43.10 Schizophrenia F20.9 Sibling relational problem Z63.8
[2023-09-08] MEDS: fluoxetine 20 mg Capsule PO (09:03)
[2023-09-08] MEDS: guaiFENesin 600 mg Tablet PO ×2 (09:03→17:43)
[2023-09-08] MEDS: ARIPiprazole 10 mg Tablet PO (09:03)
[2023-09-08] MEDS: thiamine 100 mg Tablet PO (09:03)
[2023-09-08] MEDS: nicotine 21 mg Patch 1 PATCH TRANSDERMA (09:14)
[2023-09-08] MEDS: hyDROXYzine 25 mg Capsule 50 MG PO (12:33)
[2023-09-08 14:00] VITALS: BP 113/78; PULSE 99; RESP 17; O2SAT 97
[2023-09-08] MEDS: acetaminophen 325 mg Tablet 650 MG PO (14:04)
[2023-09-08] MEDS: OLANZapine 5 mg ODT PO (16:10)
[2023-09-08] MEDS: quetiapine 100 mg Tablet PO (20:30)
[2023-09-08] MEDS: haloperidol 5 mg Tablet PO (20:30)
[2023-09-08] MEDS: trazodone 100 mg Tablet PO (20:30)
[2023-09-08] MEDS: ibuprofen 600 mg Tablet PO (20:30)
--- NOTE | 2023-09-08 20:53 | PC.NURSE ---
IN DAY ROOM WATCHING TV, NO DISTRESS NOTED. PT REPORTS ANXIETY 7/10 AND DEPRESSION 5/10. DENIES SI/HI AND VH. CONTINUES TO ENDORSE HEARING VOICES THAT ARE NEGATIVE. PT STATES THE VOICES HAVE IMPROVED AND THAT THEY NEVER GO AWAY, I CAN JUST MANAGE THEM BETTER AT TIMES. PT WAS ENCOURAGED TO MAKE HIS OUTPATIENT APTS TO [facility], PT STATES HE MISSSED HIS LAST TWO THAT WERE SCHEDULED. RN EDUCATED PT ON THE IMPORTANCE OF THERAPY AND MEDICATION MANAGEMENT. PT REPORTS LEFT TOE PAIN /, IBUPROFEN WAS GIVEN ORDERED. PT REQUESTED ANXIETY MEDICATIONS FOR REPORTED INCREASED ANXIETY. PT WAS GIVEN HALDOL 5 MG ORDERED FOR ANXIETY. ALL QUESTIONS ANSWERED AND SUPPORT WAS VOICED,
[2023-09-08 21:00] VITALS: BP 118/80; PULSE 90; RESP 18; TEMP 36.6; O2SAT 97
[2023-09-09 06:00] VITALS: BP 119/75; PULSE 65; RESP 12; O2SAT 97
[2023-09-09] MEDS: thiamine 100 mg Tablet PO (08:29)
[2023-09-09] MEDS: ARIPiprazole 10 mg Tablet PO (08:29)
[2023-09-09] MEDS: guaiFENesin 600 mg Tablet PO ×2 (08:29→20:15)
[2023-09-09] MEDS: fluoxetine 20 mg Capsule PO (08:29)
[2023-09-09] MEDS: nicotine 21 mg Patch 1 PATCH TRANSDERMA (08:30)
--- NOTE | 2023-09-09 12:20 | W.PM.NPUPNS ---
Subjective NPU Subjective: Patient presented today reporting that he is feeling a little better. He reports that his sister is reconsidering allowing him to come back. He is working with the social work team on some different options. He reports doing well with the medication. He denies any side effects we talked about the likelihood of discharge in the next 48 hours. Mental Status Exam MSE Comments: This is a well-nourished, well-developed, white male, in hospital scrubs, with adequate grooming and eye contact. No abnormal movements, except for psychomotor retardation and a robotic nature to his movement. Cooperative with exam in mild distress. Speech was normal rate and volume with monotony and absent significant prosody. Mood described as a little better affect subdued and slightly less robotic. Thought process, organized. Thought content: patient denied any suicidal or homicidal ideation; patient endorses slight paranoia currently; he denied current auditory hallucinations but reports he was hearing voices as things were getting bad prior to admission. Attention, concentration, and memory appeared intact, but none were formally tested. Alert and oriented times three. Insight and judgment appear limited. Impulse control is improving. Vitals/I&O/Wt Last Vital Signs Temp 97.8 F 09/08/23 21:00 Pulse 65 09/09/23 06:00 Resp 12 09/09/23 06:00 BP 119/75 09/09/23 06:00 Pulse Ox 97 09/09/23 06:00 O2 Del Method Room Air 09/09/23 06:00 Weight last 48 hrs Weight 81.193 kg Data NPU 09/04/23 12:38 09/04/23 12:38 A&P Assessment and plan (1) Suicidal ideations: (2) Hallucinations: (3) PTSD (post-traumatic stress disorder): (4) Schizophrenia: (5) Sibling relational problem: Plan This is a 33-year-old, white male, with a history of schizophrenia but very limited history of treatment or exposure to different medications who presents now for the third time in 3-1/2 weeks with significant addiction as well as family conflicts and now homelessness. 1. Continue current medication except: 2. We will work with treatment team to see if there is some kind of nursing home or other residential option that is possible. Had his interview at [facility] but not excepted. Reportedly his sister is reconsidering. 3. We will attempt to discharge with a plan to switch over to Abilify Asimtufii. 4. Encourage individual, group, and milieu therapy. 5. Continue q-15-minute checks for safety. Involuntary Hold Information 96 Hour Hold: 96 Hour Involuntary Admission: No Attestations NPU Medical Necessity Statement*: Inpatient hospitalization is medically necessary and the clinically appropriate intervention, at this time. We will monitor medications and make changes as indicated. Likely length of stay is 1-3 days. Coding Level of Care Code Acute Code for [facility] Fwd Diagnoses Suicidal ideations R45.851 Hallucinations R44.3 PTSD (post-traumatic stress disorder) F43.10 Schizophrenia F20.9 Sibling relational problem Z63.8
[2023-09-09] MEDS: nicotine 2 mg Gum BUCCAL ×3 (12:51→19:16)
[2023-09-09] MEDS: hyDROXYzine 25 mg Capsule 50 MG PO (13:33)
--- NOTE | 2023-09-09 13:33 | PC.NURSE ---
PRN VISTARIL 50 MG GIVEN PO PER PT C/O STATED ANXIETY
[2023-09-09 14:00] VITALS: BP 116/78; PULSE 100; RESP 18; TEMP 36.4; O2SAT 96
[2023-09-09] MEDS: ibuprofen 600 mg Tablet PO (17:09)
[2023-09-09] MEDS: OLANZapine 5 mg ODT PO (19:16)
--- NOTE | 2023-09-09 19:30 | PC.NURSE ---
PT CURRENTLY DENIES SI/HI/AH/VH. PT CURRENTLY ENDORSES ANXIETY RATING IT A 7/10 ON A SCALE OF 0-10 WITH 0 BEING NONE AT ALL AND 10 BEING THE WORST. PT ALSO ENDORSES DEPRESSION RATING IT A 6-10 ON A SCALE OF 0-10 WITH 0 BEING NONE AT ALL AND 10 BEING THE WORST. PT REQUESTED PRN ANXIETY MEDICATIONS WHICH WAS GIVEN. PT WAS WILLING AND COOPERATIVE WITH ASSESSMENT. PT CURRENT NEEDS ARE MET AT THIS TIME.
[2023-09-09 20:06] VITALS: BP 117/67; PULSE 100; RESP 18; TEMP 36.8; O2SAT 97
[2023-09-09] MEDS: haloperidol 5 mg Tablet PO (20:15)
[2023-09-09] MEDS: trazodone 100 mg Tablet PO (20:15)
[2023-09-09] MEDS: quetiapine 100 mg Tablet PO (20:15)
--- NOTE | 2023-09-10 04:37 | PC.NURSE ---
PT CONTINUED TO REPORT ANXIETY AT THE BEGINNING OF SHIFT. PT WAS GIVEN HALDOL 5 MG ORDERED FOR ANXIETY AND HEARING VOICES THAT ARE NEGATIVE IN NATURE. PT HAS BEEN ASLEEP SINCE 2229 LAST NIGHT AND IS CURRENTLY RESTING WITH EYES CLOSED. HALDOL DEEMED EFFECTIVE.
[2023-09-10 06:00] VITALS: BP 115/73; PULSE 74; RESP 16; O2SAT 94
[2023-09-10] MEDS: ARIPiprazole 10 mg Tablet PO (08:51)
[2023-09-10] MEDS: fluoxetine 20 mg Capsule PO (08:51)
[2023-09-10] MEDS: thiamine 100 mg Tablet PO (08:51)
[2023-09-10] MEDS: guaiFENesin 600 mg Tablet PO (08:52)
[2023-09-10] MEDS: nicotine 21 mg Patch 1 PATCH TRANSDERMA (08:54)
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
[2023-09-10 12:47] VITALS: BP 115/73; PULSE 74; RESP 16; O2SAT 94
[2023-09-10] MEDS: ARIPiprazole Maintena 400 MG IM (12:59)
--- NOTE | 2023-09-10 12:59 | PC.NURSE ---
SHIRLENE MAINTENA 400 MG GIVEN IM ORDERED BY PHYSICIAN, INJECTION GIVEN IN LEFT DELTOID. TOLERATED INJECTION WELL. LOT [id number] Aug 2025
== END 2023-09-10 13:19 | disposition home or self-care (01) | DRG 885 ==
LOC: ER 13:41 → NP 13:55
PROVIDERS: Admitting Provider Psychiatry & Neurology Psychiatry; Emergency Provider Emergency Medicine; PCP Family Medicine; Visit Provider Psychiatry & Neurology Psychiatry
DX: F20.9 Schizophrenia, unspecified (principal); R45.851 Suicidal ideations; Z59.00 Homelessness unspecified; Z91.128 Patient's intentional underdosing of medication regimen for other reason; Z63.8 Other specified problems related to primary support group; F17.210 Nicotine dependence, cigarettes, uncomplicated
CPT/HCPCS: 80053; 80306; 80307; 85025; 96372; 97165; 99285; Q0162

== ENCOUNTER 2023-09-13 14:44 | Emergency (ER) | payer MEDICAID, SELFPAY ==
[2023-09-13 15:24] VITALS: BP 115/78; PULSE 102; RESP 18; TEMP 36.8; O2SAT 97; BMI 25.1
--- NOTE | 2023-09-13 15:45 | XRR_ITS ---
PROCEDURE INFORMATION: Exam: XR Left Foot Exam date and time: 09/13/2023 3:51 PM Age: 33 years old Clinical indication: Injury or trauma; Blunt trauma; Injury date: 1 week ago; Patient HX: Complaints of left foot pain after walking for long periods on it. Fall 09/03 TECHNIQUE: Imaging protocol: Radiologic exam of the left foot. Views: 3 or more views. COMPARISON: 1. CR (LOW EXM, ) 08/26/2023 3:07 PM 2. CR XR foot LT min 3V* [id number] 07/30/2023 2:24 PM 3. CR XR foot LT min 3V* [id number] 07/02/2023 3:09 PM FINDINGS: Bones/joints: No new acute fracture or dislocation. Continued healing of 2nd metatarsal shaft fracture. Mineralization is normal. Joints are maintained. Soft tissues: Unremarkable. XR/XR foot LT min 3V* [id number] IMPRESSION: Continued healing 2nd metatarsal shaft fracture.
--- NOTE | 2023-09-13 15:46 | ED_ITS ---
HPI - Extremity Injury (Lower) General: Chief Complaint: Extremity Injury, Lower Stated Complaint: left foot injury Time Seen by Provider: 09/13/23 15:29 Source: patient Mode of arrival: ambulatory Limitations: no limitations History of Present Illness: Patient is a 33-year-old male who is well-known to our emergency department here for complaints of left foot pain. Patient states he fractured the foot on 06/12. He has had appropriate follow-up through podiatry as well as his PCP. He has been cleared by podiatry. He was seen here in our emergency department at the end of July for complaints of left foot pain after walking for long periods on it. He was then seen in our ER on 09/03 for right foot pain following a fall. Patient states he now wants to get his left foot checked out following the same follow-up week ago as he thinks he may have injured it as well. MD complaint: foot injury Onset (ago): week(s) Injury: Left: foot Place: home Severity: mild Relieving factors: immobilization Exacerbating factors: weight bearing Associated symptoms: Reports no associated symptoms Other symptoms: none Review of Systems Card: Denies: chest pain Resp: Denies: dyspnea Musc: Reports: extremity pain (L foot); Denies: joint redness or joint warmth Neuro: Denies: numbness in extremities or sensory changes PFSH ED PFSH: Medical History PTSD (post-traumatic stress disorder) Surgical History History of thumb surgery Family History Denies family history of Diabetes CAD (coronary artery disease) Clotting disorder Dementia Hyperlipidemia Psychiatric illness Chronic kidney disease (CKD) Anesthesia complication Bleeding disorder Lung disease Cancer Hypertension Stroke Social History Smoking and tobacco/nicotine status: current every day tobacco/nicotine user cigarettes Packs smoked per day: 1 Alcohol intake: current Alcohol intake frequency: few times a week Alcohol type: beer Substance/Drug Use: never Lives independently: Yes Current occupational status: employed Special kristen needs: No Agree to transfusion: Yes Physical Exam Const: COMMON NORMALS: no acute distress, patient oriented x3, no limitations, alert and well nourished Extremity: COMMON NORMALS: normal to inspection, full ROM, capillary refill normal, no joint enlargement, no clubbing, cyanosis or edema, no calf tenderness and no pedal edema GENERAL: Yes normal exam except as noted LEFT LOWER EXTREMITY: Yes foot & digits (TTP dorsal L foot; no bony deformities) Left foot and digits: Yes neurovascular exam (normal) Neuro: COMMON NORMALS: patient oriented x3, moves all extremities, no focal motor deficits, no sensory deficits noted and gait normal SENSORIUM/ORIENTATION: Yes alert Skin: TRAUMA: no lacerations or abrasions Course Vital Signs: Vital signs: Vital Signs Temperature 98.2 F 09/13/23 15:24 Pulse Rate 101 H 09/13/23 15:47 Respiratory Rate 18 09/13/23 15:24 Blood Pressure 127/86 09/13/23 15:47 Pulse Oximetry 93 09/13/23 15:47 Oxygen Delivery Me thod Room Air 09/13/23 15:24 MDM - Extremity Injury (Lower) Medical Decision Making Personal interpretation of XR negative. He will be allowed discharge. Medical Records I reviewed the patient's medical records. XR interpretation done by ED provider, pending radiology final review Discharge Plan Discharge Patient Disposition: Home Clinical Impression: Left foot pain Condition: Stable Prescriptions: No Action trazodone 100 mg tablet See Rx Instructions .ROUTE .COMPLEX Qty: 14 0RF Dose Instruction: Take 1 tablet by mouth once daily Rx Instructions: Take 1 tablet by mouth once daily quetiapine 100 mg Tablet 100 mg PO BEDTIME 30 Days Qty: 30 1RF Abilify Maintena 400 mg suspension,extended rel recon 400 mg IM Q28D 28 Days Qty: 1 1RF Rx Instructions: Next injection 10/11/2023 then as directed hydroxyzine HCl 25 mg tablet 25 mg PO BID PRN (Reason: itching) Qty: 60 1RF acetaminophen 500 mg Tablet 2,000 mg PO Q6H PRN (Reason: Pain) thiamine mononitrate (vit B1) [Vitamin B-1 (mononitrate)] 100 mg Tablet 100 mg PO DAILY 30 Days Qty: 30 1RF Lexapro 10 mg tablet 10 mg PO DAILY 30 Days Qty: 30 1RF Rx Instructions: Start half tab for 6 days then full tab thereafter Discharge Orders: Discharge ED (Routine); Ordered 09/13/23 Ordered By: Tameka Romo Referrals: Carlos Holm MD [Primary Care Provider] - Activity Restrictions/Additional Instructions: Your foot x-ray was negative. You can follow up with your primary care provider or strip machine operator for continued pain. Coding Level of Care Code ED Nurse Practitioner for Jordan Arellano
[2023-09-13 15:47] VITALS: BP 127/86; PULSE 101; O2SAT 93
[2023-09-13 16:15] VITALS: BP 127/86; PULSE 101; O2SAT 93
== END 2023-09-13 16:16 | disposition home or self-care (01) ==
PROVIDERS: Emergency Provider Physician Assistant; PCP Family Medicine
DX: M79.672 Pain in left foot (principal); F17.210 Nicotine dependence, cigarettes, uncomplicated
CPT/HCPCS: 73630; 99283

== ENCOUNTER → 2023-09-23 13:57 | Outpatient (BNVA) | payer MEDICAID, SELFPAY | PROVIDERS: PCP Family Medicine; Visit Provider Podiatrist Foot & Ankle Surgery | DX: S92.335A Nondisplaced fracture of third metatarsal bone, left foot, initial encounter for closed fracture; W20.8XXA Other cause of strike by thrown, projected or falling object, initial encounter | CPT/HCPCS: 99213 ==

== ENCOUNTER → 2023-10-08 14:02 | Outpatient (BNVA) | payer MEDICAID, SELFPAY | PROVIDERS: PCP Family Medicine; Visit Provider Podiatrist Foot & Ankle Surgery | DX: S92.335D Nondisplaced fracture of third metatarsal bone, left foot, subsequent encounter for fracture with routine healing; X58.XXXD Exposure to other specified factors, subsequent encounter | CPT/HCPCS: 73630 ==

== ENCOUNTER → 2023-11-05 13:53 | Outpatient (BNVA) | payer MEDICAID, SELFPAY | PROVIDERS: PCP Family Medicine; Visit Provider Podiatrist Foot & Ankle Surgery | DX: S92.335D Nondisplaced fracture of third metatarsal bone, left foot, subsequent encounter for fracture with routine healing; X58.XXXD Exposure to other specified factors, subsequent encounter | CPT/HCPCS: 73630; 99213 ==

== ENCOUNTER → 2023-11-12 12:04 | Outpatient (BNVA) | payer MEDICAID, SELFPAY | PROVIDERS: PCP Family Medicine; Visit Provider Nurse Practitioner | DX: F20.9 Schizophrenia, unspecified (principal); F43.22 Adjustment disorder with anxiety; Z79.899 Other long term (current) drug therapy; R44.3 Hallucinations, unspecified; F43.10 Post-traumatic stress disorder, unspecified; F17.200 Nicotine dependence, unspecified, uncomplicated; F33.1 Major depressive disorder, recurrent, moderate; F41.1 Generalized anxiety disorder | CPT/HCPCS: 80061; 83036 ==

== ENCOUNTER → 2024-06-02 12:45 | Outpatient (BNVA) | payer MEDICAID, SELFPAY ==
[2023-12-27 12:22] VITALS: BP 116/80; BMI 26.5
== END ==
PROVIDERS: PCP Family Medicine; Visit Provider Registered Nurse Neonatal Intensive Care
DX: R11.10 Vomiting, unspecified (principal)
CPT/HCPCS: 87426

== ENCOUNTER 2024-07-04 21:10 | Inpatient (IN) | payer MEDICAID, SELFPAY ==
[2023-12-27 12:22] VITALS: BP 116/80; BMI 26.5
[2024-07-04 21:20] VITALS: BP 118/87; PULSE 105; RESP 16; TEMP 36.8; O2SAT 95; BMI 26.4
[2024-07-04 22:00] LABS: Basophils # 0.1 10^3/uL (0.0-0.1); Basophils % 1.1 %; Eosinophils # 0.1 10^3/uL (0.0-0.8); Eosinophils % 1.6 %; Hematocrit 48.8 % (37-53); Lymphocytes # 2.5 10^3/uL (0.8-4.8); Lymphocytes % 40.1 %; Mean Corpuscular Hemoglobin 29.3 pg (27-33); Mean Corpuscular Volume 88.7 fl (82-101); Mean Platelet Volume 8.5 fL (7.4-10.4); Monocytes # 0.6 10^3/uL (0.2-0.9); Monocytes % 9.4 %; Neutrophils # 2.97 10^3/uL (1.8-7.7); Neutrophils % 47.5 %; Nucleated Red Blood Cells % 0 %; Platelet Count 352 10^3/cmm (157-399); Red Cell Distribution Width 14.2 % (12.1-15.1); White Blood Count 6.26 10^3/uL (3.29-11.43)
[2024-07-04 22:20] LABS: Alanine Aminotransferase 16 U/L (0-41); Albumin Level 4.1 g/dL (3.5-5.2); Alcohol Level 99 mg/dL (0-10); Alkaline Phosphatase 143 U/L (40-130); Anion Gap 13.2 (5-19); Aspartate Amino Transferase 17 U/L (0-40); Blood Urea Nitrogen 7 mg/dL (6-20); Calcium 8.7 mg/dL (8.5-10.5); Carbon Dioxide 28 mmol/L (22-29); Chloride 103 mmol/L (98-107); Creatinine Clr Calc Pharmacy 130.2969; Globulin 2.7 g/dL (1.3-4.6); Glomerular Filtration Rate 96.6 mL/min (90-130); Glucose 99 mg/dL (65-115); Osmolality Calculated 288 mOsm/kg (285-295); Potassium 4.2 mmol/L (3.5-5.1); Sodium 140 mmol/L (136-145); Total Bilirubin 0.4 mg/dL (0.15-1.2); Total Protein 6.8 g/dL (6.6-8.7)
--- NOTE | 2024-07-04 22:20 | W.ED.PSYCHS ---
HPI - Psych General: Chief Complaint: Psychiatric Symptoms Stated Complaint: SI Time Seen by Provider: 07/04/24 21:20 History of Present Illness: 33-year-old male patient with a history evidently of schizophrenia. He presents with suicidal ideation. He is hearing voices he says. His plan is to walk into traffic. He has been off of his Seroquel and antidepressant for the last week he says. He denies other health problems or substance problems. Related Data Home Medications Medication Instructions Recorded Confirmed acetaminophen 500 mg tablet 2,000 mg PO Q6H PRN Pain 08/28/23 06/30/24 Previous Rx's Medication Instructions Recorded thiamine mononitrate (vit B1) 100 100 mg PO DAILY 30 days #30 tabs 08/31/23 mg tablet (Vitamin B-1 (mononitrate)) aripiprazole 400 mg intramuscular 400 mg IM Q28D 28 days #1 ea 05/28/24 suspension,extended release (Abilify Maintena) escitalopram oxalate 20 mg tablet 20 mg PO DAILY #30 tabs 05/28/24 (Lexapro) quetiapine 200 mg tablet (Seroquel) 200 mg PO .HS #30 tabs 05/28/24 quetiapine 25 mg tablet (Seroquel) 25 mg PO BID #60 tabs 05/28/24 nystatin 100,000 unit/gram topical 1 applic topical BID 7 days #60 06/30/24 cream grams Allergies Allergy/AdvReac Type Severity Reaction Status Date / Time Sulfa (Sulfonamide Allergy ALGY-Hives Verified 06/30/24 13:40 Antibiotics) [facility] PFSH: Medical History Generalized anxiety disorder Major depressive disorder, recurrent, moderate On combination antipsychotic drug therapy Psychiatric care PTSD (post-traumatic stress disorder) Surgical History History of thumb surgery Family History Denies family history of Diabetes CAD (coronary artery disease) Clotting disorder Dementia Hyperlipidemia Psychiatric illness Chronic kidney disease (CKD) Anesthesia complication Bleeding disorder Lung disease Cancer Hypertension Stroke Social History (Updated 12/17/23 @ 11:31 by Demetria Loza MA) Smoking and tobacco/nicotine status: current every day tobacco/nicotine user cigarettes Packs smoked per day: 0.5 Years cigarettes smoked: 20 and e-cigarettes E-Cigarette Details: e-cigarette, vaporizer device and with nicotine Alcohol intake: current Alcohol intake frequency: few times a month Alcohol type: beer Substance/Drug Use: never Lives independently: Yes Current occupational status: employed Special kristen needs: No Agree to transfusion: Yes Physical Exam Const: GENERAL APPEARANCE: cooperative; not ill appearing and not frail appearing HENMT: COMMON NORMALS: normocephalic, atraumatic and Normal external nose present HEAD & SCALP: normocephalic and atraumatic FACE & SINUS: normal facial exam and face symmetric NOSE: Normal external nose present Eye: COMMON NORMALS: Equal, round and reactive pupils present and EOMs intact bilaterally PUPIL: Yes Equal, round and reactive pupils present Neck/C-Spine: GENERAL: Yes trachea midline Chest: CHEST: Yes Symmetrical chest wall rise Resp: COMMON NORMALS: normal respiratory effort, No retractions, No use of accessory muscles and clear to auscultation bilaterally AUSCULTATION: clear to auscultation bilaterally Cardio: COMMON NORMALS: regular rate and regular rhythm RATE: regular rate RHYTHM: regular rhythm GI: COMMON NORMALS: Normal to inspection, nondistended, normoactive bowel sounds present Extremity: COMMON NORMALS: no pedal edema Neuro: LUCIANA COMA SCALE: document GCS findings Meyers Chuck coma scale eye opening: Spontaneous Meyers Chuck coma scale verbal response: Orientated Luciana coma scale motor response: Obey commands Meyers Chuck coma scale total score: 15 SENSORY EXAM: Yes extremities (intact) Psych: COMMON NORMALS: speech normal SPEECH: Yes normal speech Skin: COMMON NORMALS: no rashes or lesions noted GENERAL SKIN EXAM: no rashes or lesions noted Course Vital Signs: Vital signs: Vital Signs Temperature 98.2 F 07/04/24 21:20 Pulse Rate 89 07/04/24 23:48 Respiratory Rate 16 07/04/24 23:48 Blood Pressure 125/79 07/04/24 23:48 Pulse Oximetry 96 07/04/24 23:48 Oxygen Delivery Me thod Room Air 07/04/24 21:20 [facility] - Psych Medical Decision Making Patient is medically stable. Laboratory is not remarkable. Urine drug screen is positive for amphetamines, ethyl alcohol is 99. He has been calm, and cooperative here. He wishes to be admitted for treatment. Spoke with psychiatry. They agree. Lab Data 07/04/24 21:52 07/04/24 21:52 Laboratory Results WBC 6.26 10^3/uL (3.29-11.43) 07/04/24 21:52 RBC 5.50 10^6/uL (3.85-5.65) 07/04/24 21:52 Hgb 16.10 g/dL (11.27-16.99) 07/04/24 21:52 Hct 48.8 % (37-53) 07/04/24 21:52 MCV 88.7 fl (82-101) 07/04/24 21:52 MCH 29.3 pg (27-33) 07/04/24 21:52 MCHC 33.0 g/dL (30-55) 07/04/24 21:52 RDW 14.2 % (12.1-15.1) 07/04/24 21:52 Plt Count 352 10^3/cmm (157-399) 07/04/24 21:52 MPV 8.5 fL (7.4-10.4) 07/04/24 21:52 Neut % (Auto) 47.5 % 07/04/24 21:52 Lymph % (Auto) 40.1 % 07/04/24 21:52 [place] % (Auto) 9.4 % 07/04/24 21:52 Eos % (Auto) 1.6 % 07/04/24 21:52 Baso % (Auto) 1.1 % 07/04/24 21:52 Neut # (Auto) 2.97 10^3/uL (1.8-7.7) 07/04/24 21:52 Lymph # (Auto) 2.5 10^3/uL (0.8-4.8) 07/04/24 21:52 [place] # (Auto) 0.6 10^3/uL (0.2-0.9) 07/04/24 21:52 Eos # (Auto) 0.1 10^3/uL (0.0-0.8) 07/04/24 21:52 Baso # (Auto) 0.1 10^3/uL (0.0-0.1) 07/04/24 21:52 Nucleated RBC % (auto) 0 % 07/04/24 21:52 Nucleated RBCs # 0.0 /100WBC 07/04/24 21:52 Sodium 140 mmol/L (136-145) 07/04/24 21:52 Potassium 4.2 mmol/L (3.5-5.1) 07/04/24 21:52 Chloride 103 mmol/L (98-107) 07/04/24 21:52 Carbon Dioxide 28 mmol/L (22-29) 07/04/24 21:52 Anion Gap 13.2 (5-19) 07/04/24 21:52 BUN 7 mg/dL (6-20) 07/04/24 21:52 Creatinine 0.9 mg/dL (0.7-1.2) 07/04/24 21:52 GFR Calculation 96.6 mL/min (90-130) 07/04/24 21:52 Glucose 99 mg/dL (65-115) 07/04/24 21:52 Calculated Osmolality 288 mOsm/kg (285-295) 07/04/24 21:52 Calcium 8.7 mg/dL (8.5-10.5) 07/04/24 21:52 Total Bilirubin 0.4 mg/dL (0.15-1.2) 07/04/24 21:52 AST 17 U/L (0-40) 07/04/24 21:52 ALT 16 U/L (0-41) 07/04/24 21:52 Alkaline Phosphatase 143 U/L (40-130) H 07/04/24 21:52 Total Protein 6.8 g/dL (6.6-8.7) 07/04/24 21:52 Albumin 4.1 g/dL (3.5-5.2) 07/04/24 21:52 Globulin 2.7 g/dL (1.3-4.6) 07/04/24 21:52 Urine RBC 0-2 /hpf (0-2) 07/04/24 23:12 Urine WBC 0-5 /hpf (0-5) 07/04/24 23:12 Ur Squamous Epith Cells 0-5 /hpf (0-5) 07/04/24 23:12 Amorphous Sediment Not Reportable 07/04/24 23:12 Urine Bacteria None seen /hpf (NONE) 07/04/24 23:12 Hyaline Casts 2.46 /lpf 07/04/24 23:12 Salicylates < 0.3 mg/dL (3-10) L 07/04/24 21:52 Urine Opiates Screen Negative ng/mL (Negative) 07/04/24 23:12 Acetaminophen < 5.0 ug/mL (10-30) L 07/04/24 21:52 Ur Barbiturates Screen Negative ng/mL (Negative) 07/04/24 23:12 Ur Phencyclidine Scrn Negative ng/mL (Negative) 07/04/24 23:12 Ur Amphetamines Screen Positive ng/mL (Negative) H 07/04/24 23:12 U Benzodiazepines Scrn Negative ng/mL (Negative) 07/04/24 23:12 Urine Cocaine Screen Negative ng/mL (Negative) 07/04/24 23:12 U Marijuana (THC) Screen Negative ng/mL (Negative) 07/04/24 23:12 Ethyl Alcohol 99 mg/dL (0-10) H 07/04/24 21:52 No radiology studies performed this visit Discharge Plan Discharge Condition: Stable Prescriptions: No Action nystatin 100,000 unit/gram cream 1 applic topical BID 7 Days Qty: 60 0RF quetiapine [Seroquel] 200 mg tablet 200 mg PO .HS Qty: 30 2RF Abilify Maintena 400 mg suspension,extended rel recon 400 mg IM Q28D 28 Days Qty: 1 1RF quetiapine [Seroquel] 25 mg tablet 25 mg PO BID Qty: 60 1RF escitalopram oxalate [Lexapro] 20 mg tablet 20 mg PO DAILY Qty: 30 1RF acetaminophen 500 mg Tablet 2,000 mg PO Q6H PRN (Reason: Pain) thiamine mononitrate (vit B1) [Vitamin B-1 (mononitrate)] 100 mg Tablet 100 mg PO DAILY 30 Days Qty: 30 1RF Referrals: Carlos Holm MD [Primary Care Provider] - Coding Level of Care Code ED Will Call Clerk for Jordan Arellano
[2024-07-04 22:27] LABS: Acetaminophen < 5.0 ug/mL (10-30); Salicylate < 0.3 mg/dL (3-10)
[2024-07-04 23:24] LABS: Charge for UA Resulting for Rev
[2024-07-04 23:32] LABS: Bacteria Urine None Seen /hpf; Hyaline Casts Urine 2.46 /lpf; RBC Urine 0-2 /hpf (0-2); Squamous Epithelial Cell Urine 0-5 /hpf (0-5); WBC Urine 0-5 /hpf (0-5)
[2024-07-04 23:34] LABS: Amphetamines Screen Urine Positive (Negative); Barbiturates Screen Urine Negative (Negative); Benzodiazepines Screen Urine Negative (Negative); Cocaine Screen Urine Negative (Negative); Opiate Screen Urine Negative (Negative); PCP Screen Urine Negative (Negative); THC Screen Urine Negative (Negative)
[2024-07-04 23:48] VITALS: BP 125/79; PULSE 89; RESP 16; O2SAT 96
[2024-07-04 23:59] VITALS: BP 120/85; PULSE 96; RESP 18; TEMP 36.7; O2SAT 99
[2024-07-05 00:03] VITALS: BP 125/79; PULSE 89; RESP 16; O2SAT 94
[2024-07-05 00:07] LABS: Bilirubin Urine Negative (Negative); Blood Urine Negative (Negative); Glucose Urine UA Negative (Normal); Ketones Urine Trace (Negative); Leukocyte Esterase Urine Negative (Negative); Nitrate Urine Negative (Negative); Protein Urine Negative (Negative); Specific Gravity, Urine 1.024 (1.005-1.030); Urine Appearance Clear (CLEAR); Urine Color Yellow (Yellow)
[2024-07-05] MEDS: trazodone 50 mg Tablet PO (00:50)
[2024-07-05] MEDS: hyDROXYzine 25 mg Capsule 50 MG PO (00:50)
[2024-07-05 04:12] VITALS: BP 141/82; PULSE 86; RESP 18; TEMP 36.7; O2SAT 96
[2024-07-05 07:31] VITALS: BP 116/79; PULSE 87; RESP 16; TEMP 36.8; O2SAT 95
[2024-07-05] MEDS: multivitamin therapeutic Tablet 1 TAB PO (08:31)
[2024-07-05] MEDS: escitalopram 10 mg Tablet 20 MG PO (08:31)
[2024-07-05] MEDS: thiamine 100 mg Tablet PO (08:31)
[2024-07-05] MEDS: quetiapine 25 mg Tablet PO ×2 (08:31→17:43)
[2024-07-05] MEDS: folic acid 1 mg Tablet PO (08:33)
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
[2024-07-05 11:23] VITALS: BP 115/75; PULSE 84; RESP 16; TEMP 36.9; O2SAT 95
[2024-07-05] MEDS: nicotine 2 mg Gum BUCCAL (15:27)
[2024-07-05 16:00] VITALS: BP 125/74; PULSE 74; RESP 16; TEMP 36.6; O2SAT 98
[2024-07-05] MEDS: nystatin cream 30 gm 1 APPLIC TOPICAL (17:43)
[2024-07-05 20:00] VITALS: BP 124/78; PULSE 90; RESP 18; TEMP 36.7; O2SAT 95
[2024-07-05] MEDS: quetiapine 100 mg Tablet 200 MG PO (20:12)
[2024-07-06] VITALS: BP 112/76; PULSE 77; RESP 18; TEMP 37; O2SAT 96
[2024-07-06 04:00] VITALS: BP 113/75; PULSE 78; RESP 18; TEMP 36.6; O2SAT 93
[2024-07-06 08:00] VITALS: BP 106/63; PULSE 87; RESP 16; O2SAT 97
[2024-07-06] MEDS: nicotine 21 mg Patch 1 PATCH TRANSDERMA (08:12)
[2024-07-06] MEDS: quetiapine 25 mg Tablet PO ×2 (08:13→17:46)
[2024-07-06] MEDS: multivitamin therapeutic Tablet 1 TAB PO (08:13)
[2024-07-06] MEDS: folic acid 1 mg Tablet PO (08:13)
[2024-07-06] MEDS: thiamine 100 mg Tablet PO (08:13)
[2024-07-06] MEDS: escitalopram 10 mg Tablet 20 MG PO (08:14)
[2024-07-06 12:00] VITALS: BP 117/77; PULSE 90; RESP 17; O2SAT 96
[2024-07-06] MEDS: ARIPiprazole 30 mg Tablet 15 MG PO (15:03)
[2024-07-06] MEDS: ARIPiprazole Maintena 400 MG IM (15:04)
--- NOTE | 2024-07-06 15:13 | PC.NURSE ---
Administered abilify maintena 400mg into patient's right deltoid muscle. patient tolerated well. Lot:[id number] exp: Aug 2026
[2024-07-06 16:00] VITALS: BP 119/79; PULSE 79; RESP 18; O2SAT 97
[2024-07-06 19:20] VITALS: BP 117/74; PULSE 92; RESP 18; TEMP 36.7; O2SAT 96
[2024-07-06] MEDS: quetiapine 100 mg Tablet 200 MG PO (19:45)
--- NOTE | 2024-07-06 20:07 | P.NPUPN_ITS ---
Subjective NPU 2 Subjective: Patient presented today reporting that he is doing okay. He reports that he is feeling a bit tired with the restarting of the medication. He continued to endorse a desire to continue the medication and working with the social work team on discharge planning. He denied any new or pressing issues. Mental Status Exam 2 MSE Comments: This is a well-nourished, well-developed, white male, in hospital scrubs, with adequate grooming and eye contact. No abnormal movements, except for psychomotor retardation. Cooperative with exam in mild distress. Speech was normal rate and volume with monotony and absent significant prosody. Mood described as okay, a little depressed; affect subdued. Thought process, organized. Thought content: patient endorsed suicidal but denied homicidal ideation; patient endorses slight paranoia currently; he denied current auditory hallucinations. Attention, concentration, and memory appeared intact, but none were formally tested. Alert and oriented times three. Insight and judgment appear adequate. Impulse control is limited. Vitals/I&O/Wt Last Vital Signs Temp 98.1 F 07/06/24 19:20 Pulse 92 07/06/24 19:20 Resp 18 07/06/24 19:20 BP 117/74 07/06/24 19:20 Pulse Ox 96 07/06/24 19:20 O2 Del Method Room Air 07/06/24 19:20 Weight last 48 hrs Weight 84.935 kg Weight 86.183 kg Data NPU 07/04/24 21:52 07/04/24 21:52 A&P Assessment and plan (1) Suicidal ideations: (2) Hallucinations: (3) PTSD (post-traumatic stress disorder): (4) Schizophrenia: Qualifiers: Schizophrenia type: disorganized schizophrenia Qualified Code(s): F20.1 - Disorganized schizophrenia (5) Sibling relational problem: Plan This is a 33-year-old, white male, with a history of schizophrenia but limited history of treatment who presents now after several months having run out of his medication, missed his long acting injectable with active addiction no longer living with his sister who is often his biggest supporter. 1. Restarted injection as well as other medications. 2. Continue every 15 minute checks for safety. 3. Encourage individual, group and milieu therapies. 4. Obtain collateral information on what his baseline actually is. 5. Encourage sober living treatment after discharge at the highest level of care to which he is willing to commit. Involuntary Hold Information 2 96 Hour Hold: 96 Hour Involuntary Admission: No Attestations NPU 2 Medical Necessity Statement*: Inpatient hospitalization is medically necessary and the clinically appropriate intervention, at this time. We will monitor medications and make changes as indicated. Likely length of stay is three to five days. 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
[2024-07-07] VITALS: BP 110/76; PULSE 80; RESP 18; TEMP 36.9; O2SAT 94
[2024-07-07 04:00] VITALS: BP 111/79; PULSE 72; RESP 18; TEMP 36.4; O2SAT 96
[2024-07-07 07:33] VITALS: BP 109/74; PULSE 71; RESP 16; TEMP 36.4; O2SAT 95
[2024-07-07] MEDS: multivitamin therapeutic Tablet 1 TAB PO (08:31)
[2024-07-07] MEDS: ARIPiprazole 30 mg Tablet 15 MG PO (08:31)
[2024-07-07] MEDS: escitalopram 10 mg Tablet 20 MG PO (08:31)
[2024-07-07] MEDS: folic acid 1 mg Tablet PO (08:31)
[2024-07-07] MEDS: thiamine 100 mg Tablet PO (08:31)
[2024-07-07] MEDS: quetiapine 25 mg Tablet PO ×2 (08:31→17:22)
[2024-07-07] MEDS: hyDROXYzine 25 mg Capsule 50 MG PO (08:35)
[2024-07-07] MEDS: nicotine 21 mg Patch 1 PATCH TRANSDERMA (08:36)
[2024-07-07 11:45] VITALS: BP 111/74; PULSE 74; RESP 16; TEMP 36.6; O2SAT 93
--- NOTE | 2024-07-07 12:59 | W.PM.NPUPNS ---
Subjective NPU Subjective: Patient presented today reporting that he is feeling fairly good. He reports that he is unsure of what his options will be as far as where he can go after this. We discussed the importance of a sobriety and that we have had concerns about his instability in previous visits. He is unclear what his sister is thinking but we discussed that his brother is denying him being able to come there because he cannot have his addiction around his children. He reports being tired but otherwise denied any side effects to the medication. Mental Status Exam MSE Comments: This is a well-nourished, well-developed, white male, in hospital scrubs, with adequate grooming and eye contact. No abnormal movements, except for psychomotor retardation. Cooperative with exam in mild distress. Speech was normal rate and volume with monotony and absent significant prosody. Mood described as okay, a little depressed; affect subdued. Thought process, organized. Thought content: patient endorsed suicidal but denied homicidal ideation; patient endorses slight paranoia currently; he denied current auditory hallucinations. Attention, concentration, and memory appeared intact, but none were formally tested. Alert and oriented times three. Insight and judgment appear adequate. Impulse control is limited. Vitals/I&O/Wt Last Vital Signs Temp 98 F 07/07/24 11:45 Pulse 74 07/07/24 11:45 Resp 16 07/07/24 11:45 BP 111/74 07/07/24 11:45 Pulse Ox 93 07/07/24 11:45 O2 Del Method Room Air 07/07/24 11:45 Data NPU 07/04/24 21:52 07/04/24 21:52 A&P Assessment and plan (1) Suicidal ideations: (2) Hallucinations: (3) PTSD (post-traumatic stress disorder): (4) Schizophrenia: Qualifiers: Schizophrenia type: disorganized schizophrenia Qualified Code(s): F20.1 - Disorganized schizophrenia (5) Sibling relational problem: Plan This is a 33-year-old, white male, with a history of schizophrenia but limited history of treatment who presents now after several months having run out of his medication, missed his long acting injectable with active addiction no longer living with his sister who is often his biggest supporter. 1. Restarted injection as well as other medications. 2. Continue every 15 minute checks for safety. 3. Encourage individual, group and milieu therapies. 4. Obtain collateral information on what his baseline actually is. 5. Encourage sober living treatment after discharge at the highest level of care to which he is willing to commit. Involuntary Hold Information 96 Hour Hold: 96 Hour Involuntary Admission: No Attestations NPU Medical Necessity Statement*: Inpatient hospitalization is medically necessary and the clinically appropriate intervention, at this time. We will monitor medications and make changes as indicated. Likely length of stay is 2-4 days. Coding Level of Care Code Acute Code for [facility] Fwd Diagnoses Suicidal ideations R45.851 Hallucinations R44.3 PTSD (post-traumatic stress disorder) F43.10 Disorganized schizophrenia F20.1 Schizophrenia type: disorganized schizophrenia Sibling relational problem Z63.8
[2024-07-07 14:06] VITALS: BP 118/76; PULSE 78; RESP 16; TEMP 36.7; O2SAT 98
[2024-07-07 19:08] VITALS: BP 116/78; PULSE 78; RESP 18; TEMP 36.4; O2SAT 96
[2024-07-07] MEDS: quetiapine 100 mg Tablet 200 MG PO (20:06)
[2024-07-08 06:00] VITALS: BP 109/74; PULSE 71; RESP 18; TEMP 36.5; O2SAT 95
[2024-07-08] MEDS: escitalopram 10 mg Tablet 20 MG PO (08:25)
[2024-07-08] MEDS: folic acid 1 mg Tablet PO (08:25)
[2024-07-08] MEDS: quetiapine 25 mg Tablet PO ×2 (08:25→17:29)
[2024-07-08] MEDS: thiamine 100 mg Tablet PO (08:25)
[2024-07-08] MEDS: multivitamin therapeutic Tablet 1 TAB PO (08:25)
[2024-07-08] MEDS: ARIPiprazole 30 mg Tablet 15 MG PO (08:25)
[2024-07-08] MEDS: nicotine 21 mg Patch 1 PATCH TRANSDERMA (08:26)
[2024-07-08] MEDS: OLANZapine 5 mg ODT PO (12:52)
[2024-07-08 14:00] VITALS: BP 128/98; PULSE 96; RESP 16; TEMP 36.8; O2SAT 94
--- NOTE | 2024-07-08 14:06 | P.NPUPN_ITS ---
Subjective NPU 2 Subjective: Patient presented today reporting that he is doing okay. He acknowledges the breakdown with his family. Staff reports he continues to be quite isolative which is noted on direct observation. He reports he is still adjusting to having the medications restarted. He is working with the social work team on viable options for discharge including sober living. He denied any side effects to the medication. Mental Status Exam 2 MSE Comments: This is a well-nourished, well-developed, white male, in hospital scrubs, with adequate grooming and eye contact. No abnormal movements, except for psychomotor retardation. Cooperative with exam in mild distress. Speech was normal rate and volume with monotony and absent significant prosody. Mood described as okay, a little depressed; affect subdued. Thought process, organized. Thought content: patient endorsed suicidal but denied homicidal ideation; patient endorses slight paranoia currently; he denied current auditory hallucinations. Attention, concentration, and memory appeared intact, but none were formally tested. Alert and oriented times three. Insight and judgment appear adequate. Impulse control is limited. Vitals/I&O/Wt Last Vital Signs Temp 97.7 F 07/08/24 06:00 Pulse 71 07/08/24 06:00 Resp 18 07/08/24 06:00 BP 109/74 07/08/24 06:00 Pulse Ox 95 07/08/24 06:00 O2 Del Method Room Air 07/08/24 06:00 Data NPU 07/04/24 21:52 07/04/24 21:52 A&P Assessment and plan (1) Suicidal ideations: (2) Hallucinations: (3) PTSD (post-traumatic stress disorder): (4) Schizophrenia: Qualifiers: Schizophrenia type: disorganized schizophrenia Qualified Code(s): F20.1 - Disorganized schizophrenia (5) Sibling relational problem: Plan This is a 33-year-old, white male, with a history of schizophrenia but limited history of treatment who presents now after several months having run out of his medication, missed his long acting injectable with active addiction no longer living with his sister who is often his biggest supporter. 1. Restarted injection as well as other medications. 2. Continue every 15 minute checks for safety. 3. Encourage individual, group and milieu therapies. 4. Obtain collateral information on what his baseline actually is. 5. Encourage sober living treatment after discharge at the highest level of care to which he is willing to commit. Involuntary Hold Information 2 96 Hour Hold: 96 Hour Involuntary Admission: No Attestations NPU 2 Medical Necessity Statement*: Inpatient hospitalization is medically necessary and the clinically appropriate intervention, at this time. We will monitor medications and make changes as indicated. Likely length of stay is 2-4 days. 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
[2024-07-08 20:34] VITALS: BP 115/76; PULSE 85; RESP 18; TEMP 36.7; O2SAT 96
[2024-07-08] MEDS: quetiapine 100 mg Tablet 200 MG PO (20:48)
[2024-07-08] MEDS: trazodone 50 mg Tablet PO (20:48)
[2024-07-09 06:00] VITALS: BP 127/84; PULSE 77; RESP 14; TEMP 36.7; O2SAT 99
[2024-07-09] MEDS: escitalopram 10 mg Tablet 20 MG PO (09:07)
[2024-07-09] MEDS: thiamine 100 mg Tablet PO (09:07)
[2024-07-09] MEDS: ARIPiprazole 30 mg Tablet 15 MG PO (09:07)
[2024-07-09] MEDS: multivitamin therapeutic Tablet 1 TAB PO (09:08)
[2024-07-09] MEDS: quetiapine 25 mg Tablet PO ×2 (09:08→17:55)
[2024-07-09] MEDS: folic acid 1 mg Tablet PO (09:08)
[2024-07-09] MEDS: nicotine 21 mg Patch 1 PATCH TRANSDERMA (09:24)
[2024-07-09] MEDS: hyDROXYzine 25 mg Capsule 50 MG PO (12:37)
[2024-07-09 14:00] VITALS: BP 114/73; PULSE 81; RESP 17; TEMP 36.7; O2SAT 96
[2024-07-09] MEDS: ondansetron 4 MG Tablet PO (15:54)
[2024-07-09] MEDS: nystatin cream 30 gm 1 APPLIC TOPICAL (17:55)
--- NOTE | 2024-07-09 19:17 | P.NPUPN_ITS ---
Subjective NPU 2 Subjective: Patient presented today reporting that he is doing okay. He is endorsing that he is working with the social work team to look at possible residential and sober living options. He is being a little less isolative per staff reports and direct observation but reports that that is mostly related to his medications being restarted and feeling a little tired. Otherwise he denied any side effects to medications. Mental Status Exam 2 MSE Comments: This is a well-nourished, well-developed, white male, in hospital scrubs, with adequate grooming and eye contact. No abnormal movements, except for psychomotor retardation. Cooperative with exam in mild distress. Speech was normal rate and volume with monotony and absent significant prosody. Mood described as okay, a little depressed; affect subdued. Thought process, organized. Thought content: patient endorsed suicidal but denied homicidal ideation; patient endorses slight paranoia currently; he denied current auditory hallucinations. Attention, concentration, and memory appeared intact, but none were formally tested. Alert and oriented times three. Insight and judgment appear adequate. Impulse control is limited. Vitals/I&O/Wt Last Vital Signs Temp 97.7 F 07/09/24 19:43 Pulse 85 07/09/24 19:43 Resp 17 07/09/24 19:43 BP 118/80 07/09/24 19:43 Pulse Ox 94 07/09/24 19:43 O2 Del Method Room Air 07/09/24 06:00 Data NPU 07/04/24 21:52 07/04/24 21:52 A&P Assessment and plan (1) Suicidal ideations: (2) Hallucinations: (3) PTSD (post-traumatic stress disorder): (4) Schizophrenia: Qualifiers: Schizophrenia type: disorganized schizophrenia Qualified Code(s): F20.1 - Disorganized schizophrenia (5) Sibling relational problem: Plan This is a 33-year-old, white male, with a history of schizophrenia but limited history of treatment who presents now after several months having run out of his medication, missed his long acting injectable with active addiction no longer living with his sister who is often his biggest supporter. 1. Restarted injection as well as other medications. 2. Continue every 15 minute checks for safety. 3. Encourage individual, group and milieu therapies. 4. Obtain collateral information on what his baseline actually is. 5. Encourage sober living treatment after discharge at the highest level of care to which he is willing to commit. Involuntary Hold Information 2 96 Hour Hold: 96 Hour Involuntary Admission: No Attestations NPU 2 Medical Necessity Statement*: Inpatient hospitalization is medically necessary and the clinically appropriate intervention, at this time. We will monitor medications and make changes as indicated. Likely length of stay is 1-3 days. 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
[2024-07-09] MEDS: nicotine 2 mg Gum BUCCAL (19:32)
[2024-07-09 19:43] VITALS: BP 118/80; PULSE 85; RESP 17; TEMP 36.5; O2SAT 94
[2024-07-09] MEDS: quetiapine 100 mg Tablet 200 MG PO (21:03)
[2024-07-10 06:00] VITALS: BP 116/75; PULSE 72; RESP 18; TEMP 36.6; O2SAT 94
[2024-07-10] MEDS: multivitamin therapeutic Tablet 1 TAB PO (09:00)
[2024-07-10] MEDS: thiamine 100 mg Tablet PO (09:00)
[2024-07-10] MEDS: folic acid 1 mg Tablet PO (09:00)
[2024-07-10] MEDS: escitalopram 10 mg Tablet 20 MG PO (09:00)
[2024-07-10] MEDS: quetiapine 25 mg Tablet PO ×2 (09:00→19:07)
[2024-07-10] MEDS: ARIPiprazole 30 mg Tablet 15 MG PO (09:01)
[2024-07-10] MEDS: hyDROXYzine 25 mg Capsule 50 MG PO ×2 (09:57→23:01)
[2024-07-10] MEDS: nicotine 21 mg Patch 1 PATCH TRANSDERMA (09:57)
[2024-07-10 14:00] VITALS: BP 127/80; PULSE 85; RESP 16; TEMP 36.8; O2SAT 96
[2024-07-10] MEDS: OLANZapine 5 mg ODT PO (16:29)
--- NOTE | 2024-07-10 16:48 | P.NPUPN_ITS ---
Subjective NPU 2 Subjective: Patient presented today reporting that he is doing a little better. He is seen out of the room more often and staff reports of him being less isolative seen on direct observation. He reports that he has been in communication with his family and that his sister is talking about helping him again. He continues to work with the social work team for viable options. He denied any side effects to the medication. Mental Status Exam 2 MSE Comments: This is a well-nourished, well-developed, white male, in hospital scrubs, with adequate grooming and eye contact. No abnormal movements, except for psychomotor retardation. Cooperative with exam in mild distress. Speech was normal rate and volume with monotony and absent significant prosody. Mood described as okay, a little depressed; affect subdued. Thought process, organized. Thought content: patient endorsed suicidal but denied homicidal ideation; patient endorses slight paranoia currently; he denied current auditory hallucinations. Attention, concentration, and memory appeared intact, but none were formally tested. Alert and oriented times three. Insight and judgment appear adequate. Impulse control is limited. Vitals/I&O/Wt Last Vital Signs Temp 98.2 F 07/10/24 14:00 Pulse 85 07/10/24 14:00 Resp 16 07/10/24 14:00 BP 127/80 07/10/24 14:00 Pulse Ox 96 07/10/24 14:00 O2 Del Method Room Air 07/10/24 14:00 Data NPU 07/04/24 21:52 07/04/24 21:52 A&P Assessment and plan (1) Suicidal ideations: (2) Hallucinations: (3) PTSD (post-traumatic stress disorder): (4) Schizophrenia: Qualifiers: Schizophrenia type: disorganized schizophrenia Qualified Code(s): F20.1 - Disorganized schizophrenia (5) Sibling relational problem: Plan This is a 33-year-old, white male, with a history of schizophrenia but limited history of treatment who presents now after several months having run out of his medication, missed his long acting injectable with active addiction no longer living with his sister who is often his biggest supporter. 1. Restarted injection as well as other medications. 2. Continue every 15 minute checks for safety. 3. Encourage individual, group and milieu therapies. 4. Obtain collateral information on what his baseline actually is. 5. Encourage sober living treatment after discharge at the highest level of care to which he is willing to commit. Involuntary Hold Information 2 96 Hour Hold: 96 Hour Involuntary Admission: No Attestations NPU 2 Medical Necessity Statement*: Inpatient hospitalization is medically necessary and the clinically appropriate intervention, at this time. We will monitor medications and make changes as indicated. Likely length of stay is 1-3 days. 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
[2024-07-10 20:31] VITALS: BP 110/74; PULSE 83; RESP 17; TEMP 36.6; O2SAT 93
[2024-07-10] MEDS: quetiapine 100 mg Tablet 200 MG PO (21:29)
[2024-07-10] MEDS: trazodone 50 mg Tablet PO (23:01)
[2024-07-11 06:00] VITALS: BP 117/74; PULSE 65; RESP 17; TEMP 36.5; O2SAT 94
[2024-07-11] MEDS: multivitamin therapeutic Tablet 1 TAB PO (09:24)
[2024-07-11] MEDS: thiamine 100 mg Tablet PO (09:24)
[2024-07-11] MEDS: escitalopram 10 mg Tablet 20 MG PO (09:24)
[2024-07-11] MEDS: ARIPiprazole 30 mg Tablet 15 MG PO (09:24)
[2024-07-11] MEDS: folic acid 1 mg Tablet PO (09:24)
[2024-07-11] MEDS: quetiapine 25 mg Tablet PO ×2 (09:24→17:16)
[2024-07-11] MEDS: nicotine 21 mg Patch 1 PATCH TRANSDERMA (12:22)
[2024-07-11] MEDS: OLANZapine 5 mg ODT PO ×2 (12:35→17:18)
[2024-07-11 14:00] VITALS: BP 106/71; PULSE 82; RESP 17; TEMP 36.8; O2SAT 95
--- NOTE | 2024-07-11 18:03 | PC.NURSE ---
Ate dinner and is now resting in bed. Patient did request medication for voices that he was hearing that were causing him to feel troubled. He could not elaborate on what they were saying. Zyprexa 10mg odt given. Respirations visualized and no distress noted.
--- NOTE | 2024-07-11 18:11 | P.NPUPN_ITS ---
Subjective NPU 2 Subjective: Patient presented today reporting that things are going okay. He continues to be less isolative and more engaged on the milieu per staff reports and direct observation. He reports that he is adjusting to the medications being restarted and is in contact with his family and hopeful that they will work with him on his residential status. He denied any side effects to the medications. Mental Status Exam 2 MSE Comments: This is a well-nourished, well-developed, white male, in hospital scrubs, with adequate grooming and eye contact. No abnormal movements, except for psychomotor retardation. Cooperative with exam in mild distress. Speech was normal rate and volume with monotony and absent significant prosody. Mood described as okay, a little depressed; affect subdued. Thought process, organized. Thought content: patient endorsed suicidal but denied homicidal ideation; patient endorses slight paranoia currently; he denied current auditory hallucinations. Attention, concentration, and memory appeared intact, but none were formally tested. Alert and oriented times three. Insight and judgment appear adequate. Impulse control is limited. Vitals/I&O/Wt Last Vital Signs Temp 98.1 F 07/11/24 19:31 Pulse 79 07/11/24 19:31 Resp 18 07/11/24 19:31 BP 133/85 07/11/24 19:31 Pulse Ox 96 07/11/24 19:31 O2 Del Method Room Air 07/11/24 19:31 Data NPU 07/04/24 21:52 07/04/24 21:52 A&P Assessment and plan (1) Suicidal ideations: (2) Hallucinations: (3) PTSD (post-traumatic stress disorder): (4) Schizophrenia: Qualifiers: Schizophrenia type: disorganized schizophrenia Qualified Code(s): F20.1 - Disorganized schizophrenia (5) Sibling relational problem: Plan This is a 33-year-old, white male, with a history of schizophrenia but limited history of treatment who presents now after several months having run out of his medication, missed his long acting injectable with active addiction no longer living with his sister who is often his biggest supporter. 1. Restarted injection as well as other medications. 2. Continue every 15 minute checks for safety. 3. Encourage individual, group and milieu therapies. 4. Obtain collateral information on what his baseline actually is. 5. Encourage sober living treatment after discharge at the highest level of care to which he is willing to commit. Involuntary Hold Information 2 96 Hour Hold: 96 Hour Involuntary Admission: No Attestations NPU 2 Medical Necessity Statement*: Inpatient hospitalization is medically necessary and the clinically appropriate intervention, at this time. We will monitor medications and make changes as indicated. Likely length of stay is 1-3 days. 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
[2024-07-11 19:31] VITALS: BP 133/85; PULSE 79; RESP 18; TEMP 36.7; O2SAT 96
[2024-07-11] MEDS: haloperidol 5 mg Tablet PO (19:53)
[2024-07-11] MEDS: quetiapine 100 mg Tablet 200 MG PO (20:51)
[2024-07-12 06:00] VITALS: BP 107/70; PULSE 78; RESP 16; TEMP 36.6; O2SAT 97; BMI 27.4
[2024-07-12] MEDS: ARIPiprazole 30 mg Tablet 15 MG PO (08:19)
[2024-07-12] MEDS: multivitamin therapeutic Tablet 1 TAB PO (08:19)
[2024-07-12] MEDS: quetiapine 25 mg Tablet PO ×2 (08:19→17:16)
[2024-07-12] MEDS: thiamine 100 mg Tablet PO (08:19)
[2024-07-12] MEDS: escitalopram 10 mg Tablet 20 MG PO (08:19)
[2024-07-12] MEDS: folic acid 1 mg Tablet PO (08:19)
[2024-07-12] MEDS: nicotine 21 mg Patch 1 PATCH TRANSDERMA (08:20)
[2024-07-12] MEDS: hyDROXYzine 25 mg Capsule 50 MG PO ×2 (12:31→19:55)
[2024-07-12 14:00] VITALS: BP 125/89; PULSE 123; RESP 18; TEMP 36.7; O2SAT 97
--- NOTE | 2024-07-12 19:05 | P.NPUPN_ITS ---
Subjective NPU 2 Subjective: Patient presented today reporting that he is feeling all right. One half reports continued to identify less isolation and more engagement and interaction. He continues to report working with his family also possible discharge options as well as some sober living options. We discussed that the social work team would return tomorrow and be able to assist him in that endeavor. He denied any side effect of the medications and reports that he is adjusting to being back on them. Mental Status Exam 2 MSE Comments: This is a well-nourished, well-developed, white male, in hospital scrubs, with adequate grooming and eye contact. No abnormal movements, except for psychomotor retardation. Cooperative with exam in mild distress. Speech was normal rate and volume with monotony and absent significant prosody. Mood described as okay; affect less subdued. Thought process, organized. Thought content: patient denied suicidal or homicidal ideation; patient endorses slight paranoia currently; he denied current auditory hallucinations. Attention, concentration, and memory appeared intact, but none were formally tested. Alert and oriented times three. Insight and judgment appear adequate. Impulse control is limited. Vitals/I&O/Wt Last Vital Signs Temp 98.1 F 07/12/24 14:00 Pulse 123 H 07/12/24 14:00 Resp 18 07/12/24 14:00 BP 125/89 07/12/24 14:00 Pulse Ox 97 07/12/24 14:00 O2 Del Method Room Air 07/12/24 06:00 07/12/24 07/12/24 07/12/24 06:59 14:59 22:59 Intake Total 600 / 600 Balance 600 / 600 Weight last 48 hrs Weight 89.358 kg Data NPU 07/04/24 21:52 07/04/24 21:52 A&P Assessment and plan (1) Suicidal ideations: (2) Hallucinations: (3) PTSD (post-traumatic stress disorder): (4) Schizophrenia: Qualifiers: Schizophrenia type: disorganized schizophrenia Qualified Code(s): F20.1 - Disorganized schizophrenia (5) Sibling relational problem: Plan This is a 33-year-old, white male, with a history of schizophrenia but limited history of treatment who presents now after several months having run out of his medication, missed his long acting injectable with active addiction no longer living with his sister who is often his biggest supporter. 1. Restarted injection as well as other medications. 2. Continue every 15 minute checks for safety. 3. Encourage individual, group and milieu therapies. 4. Obtain collateral information on what his baseline actually is. 5. Encourage sober living treatment after discharge at the highest level of care to which he is willing to commit. Involuntary Hold Information 2 96 Hour Hold: 96 Hour Involuntary Admission: No Attestations NPU 2 Medical Necessity Statement*: Inpatient hospitalization is medically necessary and the clinically appropriate intervention, at this time. We will monitor medications and make changes as indicated. Likely length of stay is 1-3 days. 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
[2024-07-12] MEDS: quetiapine 100 mg Tablet 200 MG PO (19:56)
[2024-07-12 21:48] VITALS: BP 124/81; PULSE 87; RESP 12; TEMP 36.9; O2SAT 97
[2024-07-13 06:00] VITALS: BP 119/73; PULSE 69; RESP 16; TEMP 36.8; O2SAT 95
[2024-07-13] MEDS: thiamine 100 mg Tablet PO (10:02)
[2024-07-13] MEDS: escitalopram 10 mg Tablet 20 MG PO (10:02)
[2024-07-13] MEDS: folic acid 1 mg Tablet PO (10:02)
[2024-07-13] MEDS: multivitamin therapeutic Tablet 1 TAB PO (10:02)
[2024-07-13] MEDS: quetiapine 25 mg Tablet PO ×2 (10:03→17:24)
[2024-07-13] MEDS: nicotine 21 mg Patch 1 PATCH TRANSDERMA (10:05)
[2024-07-13 14:00] VITALS: BP 120/72; PULSE 74; RESP 16; TEMP 36.5; O2SAT 98
[2024-07-13] MEDS: hyDROXYzine 25 mg Capsule 50 MG PO (14:28)
[2024-07-13] MEDS: OLANZapine 5 mg ODT PO (15:59)
--- NOTE | 2024-07-13 18:16 | W.PM.NPUPNS ---
Subjective NPU Subjective: Patient presents today reporting that he is feeling improvement. He reports that overall he is feeling optimistic about his options. He is working with the social work team on 3 different treatment providers that might be a consideration. He reports that his family is being supportive and there are reports from staff of decreased isolation and increased participation in groups [facility]. He denies any side effects of medication. Mental Status Exam MSE Comments: This is a well-nourished, well-developed, white male, in hospital scrubs, with adequate grooming and eye contact. No abnormal movements, except for psychomotor retardation. Cooperative with exam in mild distress. Speech was normal rate and volume with monotony and absent significant prosody. Mood described as okay; affect less subdued. Thought process, organized. Thought content: patient denied suicidal or homicidal ideation; patient endorses slight paranoia currently; he denied current auditory hallucinations. Attention, concentration, and memory appeared intact, but none were formally tested. Alert and oriented times three. Insight and judgment appear adequate. Impulse control is limited. Vitals/I&O/Wt Last Vital Signs Temp 97.8 F 07/13/24 19:25 Pulse 96 07/13/24 19:25 Resp 16 07/13/24 19:25 BP 131/85 07/13/24 19:25 Pulse Ox 96 07/13/24 19:25 O2 Del Method Room Air 07/13/24 19:25 Weight last 48 hrs Weight 89.358 kg Data NPU 07/04/24 21:52 07/04/24 21:52 A&P Assessment and plan (1) Suicidal ideations: (2) Hallucinations: (3) PTSD (post-traumatic stress disorder): (4) Schizophrenia: Qualifiers: Schizophrenia type: disorganized schizophrenia Qualified Code(s): F20.1 - Disorganized schizophrenia (5) Sibling relational problem: Plan This is a 33-year-old, white male, with a history of schizophrenia but limited history of treatment who presents now after several months having run out of his medication, missed his long acting injectable with active addiction no longer living with his sister who is often his biggest supporter. 1. Restarted injection as well as other medications. 2. Continue every 15 minute checks for safety. 3. Encourage individual, group and milieu therapies. 4. Obtain collateral information on what his baseline actually is. 5. Encourage sober living treatment after discharge at the highest level of care to which he is willing to commit. Working with family and social work team have been narrowed down to 3 options. Involuntary Hold Information 96 Hour Hold: 96 Hour Involuntary Admission: No Attestations NPU Medical Necessity Statement*: Inpatient hospitalization is medically necessary and the clinically appropriate intervention, at this time. We will monitor medications and make changes as indicated. Likely length of stay is 1-3 days. 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
[2024-07-13 19:25] VITALS: BP 131/85; PULSE 96; RESP 16; TEMP 36.6; O2SAT 96
[2024-07-13] MEDS: quetiapine 100 mg Tablet 200 MG PO (19:43)
[2024-07-13] MEDS: acetaminophen 325 mg Tablet 650 MG PO (19:43)
[2024-07-14 06:00] VITALS: BP 114/70; PULSE 79; RESP 18; TEMP 36.6; O2SAT 96
[2024-07-14] MEDS: thiamine 100 mg Tablet PO (08:07)
[2024-07-14] MEDS: quetiapine 25 mg Tablet PO ×2 (08:07→17:25)
[2024-07-14] MEDS: escitalopram 10 mg Tablet 20 MG PO (08:07)
[2024-07-14] MEDS: multivitamin therapeutic Tablet 1 TAB PO (08:07)
[2024-07-14] MEDS: folic acid 1 mg Tablet PO (08:07)
[2024-07-14] MEDS: nicotine 21 mg Patch 1 PATCH TRANSDERMA (08:08)
[2024-07-14 14:00] VITALS: BP 134/82; PULSE 92; RESP 17; TEMP 36.6; O2SAT 98
[2024-07-14] MEDS: hyDROXYzine 25 mg Capsule 50 MG PO (14:39)
--- NOTE | 2024-07-14 16:05 | P.NPUPN_ITS ---
Subjective NPU 2 Subjective: Patient presented today continuing to have improvement in his overall presentation per staff reports and direct observation. He continues to be more active on the unit and more engaged in his planning for aftercare. He is working with the social work team on a couple different options and we discussed the likelihood of discharge before the end of the week. Mental Status Exam 2 MSE Comments: This is a well-nourished, well-developed, white male, in hospital scrubs, with adequate grooming and eye contact. No abnormal movements, except for psychomotor retardation. Cooperative with exam in mild distress. Speech was normal rate and volume with monotony and absent significant prosody. Mood described as okay; affect less subdued. Thought process, organized. Thought content: patient denied suicidal or homicidal ideation; patient endorses slight paranoia currently; he denied current auditory hallucinations. Attention, concentration, and memory appeared intact, but none were formally tested. Alert and oriented times three. Insight and judgment appear adequate. Impulse control is limited. Vitals/I&O/Wt Last Vital Signs Temp 97.8 F 07/14/24 06:00 Pulse 79 07/14/24 06:00 Resp 18 07/14/24 06:00 BP 114/70 07/14/24 06:00 Pulse Ox 96 07/14/24 06:00 O2 Del Method Room Air 07/14/24 06:00 Data NPU 07/04/24 21:52 07/04/24 21:52 A&P Assessment and plan (1) Suicidal ideations: (2) Hallucinations: (3) PTSD (post-traumatic stress disorder): (4) Schizophrenia: Qualifiers: Schizophrenia type: disorganized schizophrenia Qualified Code(s): F20.1 - Disorganized schizophrenia (5) Sibling relational problem: Plan This is a 33-year-old, white male, with a history of schizophrenia but limited history of treatment who presents now after several months having run out of his medication, missed his long acting injectable with active addiction no longer living with his sister who is often his biggest supporter. 1. Restarted injection as well as other medications. 2. Continue every 15 minute checks for safety. 3. Encourage individual, group and milieu therapies. 4. Obtain collateral information on what his baseline actually is. 5. Encourage sober living treatment after discharge at the highest level of care to which he is willing to commit. Working with family and social work team have been narrowed down to 3 options. Involuntary Hold Information 2 96 Hour Hold: 96 Hour Involuntary Admission: No Attestations NPU 2 Medical Necessity Statement*: Inpatient hospitalization is medically necessary and the clinically appropriate intervention, at this time. We will monitor medications and make changes as indicated. Likely length of stay is 1-3 days. 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
[2024-07-14] MEDS: haloperidol 5 mg Tablet PO (16:33)
[2024-07-14 19:23] VITALS: BP 123/72; PULSE 82; RESP 18; TEMP 36.6; O2SAT 96
[2024-07-14] MEDS: quetiapine 100 mg Tablet 200 MG PO (19:58)
[2024-07-15 06:00] VITALS: BP 111/77; PULSE 74; RESP 18; TEMP 36.7; O2SAT 96
[2024-07-15] MEDS: folic acid 1 mg Tablet PO (08:34)
[2024-07-15] MEDS: multivitamin therapeutic Tablet 1 TAB PO (08:34)
[2024-07-15] MEDS: quetiapine 25 mg Tablet PO (08:34)
[2024-07-15] MEDS: thiamine 100 mg Tablet PO (08:34)
[2024-07-15] MEDS: escitalopram 10 mg Tablet 20 MG PO (08:34)
[2024-07-15 11:42] VITALS: BP 111/77; PULSE 74; RESP 18; TEMP 36.7; O2SAT 96
== END 2024-07-15 12:47 | disposition home or self-care (01) | DRG 885 ==
LOC: ER 23:50 → NP 23:55
PROVIDERS: Admitting Provider Psychiatry & Neurology Psychiatry; Emergency Provider Emergency Medicine; PCP Family Medicine; Visit Provider Psychiatry & Neurology Psychiatry
DX: F20.1 Disorganized schizophrenia (principal); R45.851 Suicidal ideations; F43.10 Post-traumatic stress disorder, unspecified; F17.210 Nicotine dependence, cigarettes, uncomplicated; F17.290 Nicotine dependence, other tobacco product, uncomplicated; Z63.8 Other specified problems related to primary support group; Z91.148 Patient's other noncompliance with medication regimen for other reason
CPT/HCPCS: 36415; 80053; 80306; 80307; 81003; 81015; 85025; 96372; 97150; 97165; 99285; Q0162

== ENCOUNTER → 2024-12-14 13:32 | Outpatient (BNVA) | payer OTHER, SELFPAY ==
[2023-12-27 12:22] VITALS: BP 116/80; BMI 26.5
== END ==
PROVIDERS: PCP Family Medicine; Visit Provider Nurse Practitioner
DX: F20.9 Schizophrenia, unspecified (principal); Z79.899 Other long term (current) drug therapy
CPT/HCPCS: 80061; 83036

== ENCOUNTER 2024-12-30 13:14 | Emergency (ER) | payer MEDICAID, SELFPAY ==
[2024-12-18 11:19] VITALS: BP 137/94; BMI 28.0
[2024-12-30 13:18] VITALS: BP 125/91; PULSE 95; RESP 18; TEMP 36.8; O2SAT 96; BMI 27.8
--- NOTE | 2024-12-30 14:13 | ED_ITS ---
HPI - Nausea/Vomiting/Diarrhea 2 General: Chief complaint: Nausea/Vomiting/Diarrhea Stated complaint: v/d/n Time Seen by Provider: 12/30/24 14:00 Source: patient Mode of arrival: ambulatory Limitations: no limitations History of Present Illness: 34-year-old male presents to the ER comp laining of vomiting and diarrhea. Patient has a significant medical history of schizophrenia and depression and is taking Seroquel, Abilify, and Lexapro. Patient states this started 2 days ago no blood in his vomit or in stool that he has noticed. Patient states he throws up about 2-3 times a day and describes it as watery and yellow in color. Patient has not taken any [id number] medication for the symptoms. Patient reports having chills, wheezing, and possibly a fever. Patient admits he was in contact with a sick coworker this past week. He denies any chest pain, shortness of breath, palpitations, dysuria, abdominal pain, hematochezia. He admits to tobacco use about half a pack a day and denies marijuana usage or illicit drug use. MD elicited complaint: nausea, vomiting, diarrhea and abdominal pain Onset (ago): day(s) Description of vomiting: food contents and watery Description of diarrhea: mucus and watery Associated nausea: Yes Associated abdominal pain: No Severity: moderate Quality: cramping Context: sick contacts (Co-worker called in sick yesterday) Associated symtoms: Reports fatigue and nausea; Denies chest pain or palpitations Related Data Previous Rx's ?Medication ?Instructions ?Recorded aripiprazole 400 mg intramuscular 400 mg IM Q28D #1 ea 12/17/24 suspension,extended release (Abilify Maintena) escitalopram oxalate 10 mg tablet 10 mg PO DAILY #30 t abs 12/17/24 (Lexapro) hydroxyzine HCl 50 mg tablet 50 mg PO QID PRN anxiety #120 tabs 12/17/24 quetiapine 200 mg tablet (Seroquel) 200 mg PO .HS #30 tabs 12/17/24 ondansetron HCl 4 mg tablet 4 mg PO Q8H #20 tabs 12/30 Allergies Allergy/AdvReac Type Severity Reaction Status Date / Time Sulfa (Sulfonamide Allergy ALGY-Hives Verified 12/17/24 08:09 Antibiotics) Review of Systems 2 General: Reports: 10 or more systems reviewed and unremarkable except in HPI and below Const: Reports: fever(s), chills, change in appetite and fatigue; Denies: body aches or night sweats Card: Denies: chest pain or palpitations Resp: Reports: wheezing; Denies: dyspnea or productive cough GI: Reports: nausea, vomiting and diarrhea; Denies: abdominal pain, hematemesis or hematochezia Musc: Denies: neck pain or back pain Skin/Breast: Denies: rash or erythema Psych: Reports: depression PFSH ED 2 PFSH: Medical History Suicidal ideations Generalized anxiety disorder Major depressive disorder, recurrent, moderate On combination antipsychotic drug therapy Psychiatric care PTSD (post-traumatic stress disorder) Surgical History History of thumb surgery Family History Denies family history of Diabetes CAD (coronary artery disease) Clotting disorder Dementia Hyperlipidemia Psychiatric illness Chronic kidney disease (CKD) Anesthesia complication Bleeding disorder Lung disease Cancer Hypertension Stroke Social History Smoking and tobacco/nicotine status: current every day tobacco/nicotine user cigarettes Packs smoked per day: 0.1 Years cigarettes smoked: 20 and e- cigarettes E-Cigarette Details: e-cigarette, vaporizer device and with nicotine E-cig/vape details: occasionally Second hand smoke exposure: No Alcohol intake: current Alcohol intake frequency: few times a month Alcohol type: beer and hard liquor Substance/Drug Use: never Adopted: No Caregiver/support person: No Lives independently: Yes Household members: none Housing: Apartment Marital status: Single Number of children: 1 Highest education level completed: 8th Grade service: No Current occupational status: unemployed Pets and animals: No Leisure activites: exercise, music, games and other Leisure activities details: movies Sexually active: No Do you think of yourself as: Straight/Heterosexual Current gender identity: Male Sis/Caodaism: Yazidism Special sis needs: No Agree to transfusion: Yes Physical Exam 2 Const: COMMON NORMALS: no acute distress, patient oriented x3, no limitations and well nourished GENERAL APPEARANCE: cooperative O RIENTATION/CONSCIOUSNESS: Yes awake, Yes oriented to person, Yes oriented to place and Yes oriented to time HENMT: COMMON NORMALS: normocephalic, atraumatic, moist oral mucous membranes and oropharynx normal HEAD & SCALP: normocephalic and atraumatic Eye: COMMON NORMALS: EOMs intact bilaterally and conjunctivae normal C ONJUNCTIVA: Yes conjunctivae normal Neck/C-Spine: COMMON NORMALS: full ROM and no meningeal signs Chest: COMMONS NORMALS: normal inspection of the chest Resp: COMMON NORMALS: normal respiratory effort, No retractions, No use of accessory muscles and clear to auscultation bilaterally EFFORT & INSPECTION: Yes able to speak in complete sentences AUSCULTATION: clear to auscultation bilaterally Cardio: COMMON NORMALS: regular rate, regular rhythm, S1 normal heart sound present and S2 normal heart sound present RATE: regular rate RHYTHM: r egular rhythm HEART SOUNDS: S1 normal heart sound present and S2 normal heart sound present GI: COMMON NORMALS: Normal to inspection, nondistended, normoactive bowel sounds present, Soft to palpation and non-tender AUSCULTATION: Yes normoactive bowel sounds PALPATION: Yes Soft to palpation Extremity: COMMON NORMALS: normal to inspection, full ROM and capillary refill normal Neuro: COMMON NORMALS: patient oriented x3, moves all extremities, no focal motor deficits and no sensory deficits noted SENSORIUM/ORIENTATION: Yes oriented to person, Yes oriented to place and Yes oriented to time MENINGEAL SIGNS: Yes no meningeal signs Psych: COMMON NORMALS: cooperative and speech normal SPEECH: Yes normal speech MOOD & AFFECT: Yes Flat affect present Skin: COMMON NORMALS: no rashes or lesions noted GENERAL SKIN EXAM: no rashes or lesions noted Course 2 Vital Signs: Vital signs: Vital Signs Temperature 98.2 F 12/30/24 13:18 Pulse Rate 95 12/30/24 13:18 Respiratory Rate 18 12/30/24 13:18 Blood Pressure 125/91 12/30/24 13:18 Pulse Oximetry 96 12/30/24 13:18 Oxygen Delivery Me thod Room Air 12/30/24 13:18 MDM - Nausea/Vomiting/Diarrhea Medical Decision Making Patient presented with couple days of nausea vomiting and diarrhea. Physical exam ultimately is unremarkable there are no clinical signs of dehydration no reproducible abdominal tenderness. Of note he did recently start up his psychiatric medications last week, after not taking them for extended period of time. His lab work was all unremarkable. He also reported positive sick contact exposure to a coworker, though is negative for viral swab.. His vitals have been within normal limits throughout ED stay. I suspect viral gastroenteritis, cannot rule out that this is medication side effect however with him being stable do not think that he requires further imaging or workup here in the ED. Also discussed this plan with the patient of conservative treatment at home such as bowel rest including the diet, he agrees and informed him to follow-up with primary care in the next few days to make sure that he is getting better. Clinically stable for discharge, will be sent Zofran to pharmacy and general return precautions given. Lab Data 12/30/24 14:10 12/30/24 14:10 Laboratory Results WBC 4.58 10^3/uL (3.29-11.43) 12/30/24 14:10 RBC 5.20 10^6/uL (3.85-5.65) 12/30/24 14:10 Hgb 15.10 g/dL (11.27-16.99) 12/30/24 14:10 Hct 45.9 % (37-53) 12/30/24 14:10 MCV 88.3 fl (82-101) 12/30/24 14:10 MCH 29.0 pg (27-33) 12/30/24 14:10 MCHC 32.9 g/dL (30-55) 12/30/24 14:10 RDW 13.4 % (12.1-15.1) 12/30/24 14:10 Plt Count 351 10^3/cmm (157-399) 12/30/24 14:10 MPV 8.7 fL (7.4-10.4) 12/30/24 14:10 Neut % (Auto) 48.5 % 12/30/24 14:10 Lymph % (Auto) 36.9 % 12/30/24 14:10 [place] % (Auto) 11.6 % 12/30/24 14:10 Eos % (Auto) 1.3 % 12/30/24 14:10 Baso % (Auto) 1.5 % 12/30/24 14:10 Neut # (Auto) 2.22 10^3/uL (1.8-7.7) 12/30/24 14:10 Lymph # (Auto) 1.7 10^3/uL (0.8-4.8) 12/30/24 14:10 [place] # (Auto) 0.5 10^3/uL (0.2-0.9) 12/30/24 14:10 Eos # (Auto) 0.1 10^3/uL (0.0-0.8) 12/30/24 14:10 Baso # (Auto) 0.1 10^3/uL (0.0-0.1) 12/30/24 14:10 Nucleated RBC % (auto) 0 % 12/30/24 14:10 Nucleated RBCs # 0.0 /100WBC 12/30/24 14:10 Sodium 141 mmol/L (136-145) 12/30/24 14:10 Potassium 4.1 mmol/L (3.5-5.1) 12/30/24 14:10 Chloride 108 mmol/L (98-107) H 12/30/24 14:10 Carbon Dioxide 26 mmol/L (22-29) 12/30/24 14:10 Anion Gap 11.1 (5-19) 12/30/24 14:10 BUN 8 mg/dL (6-20) 12/30/24 14:10 Creatinine 0.8 mg/dL (0.7-1.2) 12/30/24 14:10 GFR Calculation 110.0 mL/min (90-130) 12/30/24 14:10 Glucose 102 mg/dL (65-115) 12/30/24 14:10 Calculated Osmolality 291 mOsm/kg (285-295) 12/30/24 14:10 Calcium 9.3 mg/dL (8.5-10.5) 12/30/24 14:10 Total Bilirubin 0.6 mg/dL (0.15-1.2) 12/30/24 14:10 AST 14 U/L (0-40) 12/30/24 14:10 ALT 15 U/L (0-41) 12/30/24 14:10 Alkaline Phosphatase 121 U/L (40-130) 12/30/24 14:10 Total Protein 6.8 g/dL (6.6-8.7) 12/30/24 14:10 Albumin 4.3 g/dL (3.5-5.2) 12/30/24 14:10 Globulin 2.5 g/dL (1.3-4.6) 12/30/24 14:10 Lipase 23 U/L (13-60) 12/30/24 14:10 Influenza A (PCR) Negative (Negative) 12/30/24 13:20 Influenza Type B (PCR) Negative (Negative) 12/30/24 13:20 RSV (PCR) Negative (Negative) 12/30/24 13:20 SARS-CoV-2 (PCR) Negative (Negative) 12/30/24 13:20 No radiology studies performed this visit Discharge Plan Discharge Patient Disposition: Home Clinical Impression: Gastroenteritis Condition: Stable Prescriptions: New ondansetron HCl 4 mg tablet 4 mg PO Q8H Qty: 20 0RF No Action escitalopram oxalate [Lexapro] 10 mg tablet 10 mg PO DAILY Qty: 30 1RF quetiapine [Seroquel] 200 mg tablet 200 mg PO .HS Qty: 30 1RF Abilify Maintena 400 mg suspension,extended rel recon 400 mg IM Q28D Qty: 1 1RF hydroxyzine HCl 50 mg tablet 50 mg PO QID PRN (Reason: anxiety) Qty: 120 1RF Discharge Orders: Discharge ED (Routine); Ordered 12/30/24 Ordered By: César Garcia Referrals: Carlos Holm MD [Primary Care Provider] - Patient Instructions: Gastroenteritis (ED) Activity Restrictions/Additional Instructions: Take Zofran for your nausea, increase your fluid intake as your appetite improves. Clear liquid diet. Bowel rest. Please follow-up with primary care in the next few days for general reevaluation. Return with any blood in your vomit or stool, high fever, or any severe worsening of symptoms. Please see the attached patient instructions for further education. Stand Alone Forms: Work/School Release Print Language: Bengali Coding Level of Care Code ED Foil Operator for Jordan Arellano
[2024-12-30 14:17] LABS: Basophils # 0.1 10^3/uL (0.0-0.1); Basophils % 1.5 %; Eosinophils # 0.1 10^3/uL (0.0-0.8); Eosinophils % 1.3 %; Hematocrit 45.9 % (37-53); Lymphocytes # 1.7 10^3/uL (0.8-4.8); Lymphocytes % 36.9 %; Mean Corpuscular HGB Conc 32.9 g/dL (30-55); Mean Corpuscular Volume 88.3 fl (82-101); Mean Platelet Volume 8.7 fL (7.4-10.4); Monocytes # 0.5 10^3/uL (0.2-0.9); Monocytes % 11.6 %; Neutrophils # 2.22 10^3/uL (1.8-7.7); Neutrophils % 48.5 %; Nucleated Red Blood Cells % 0 %; Platelet Count 351 10^3/cmm (157-399); Red Cell Distribution Width 13.4 % (12.1-15.1); White Blood Count 4.58 10^3/uL (3.29-11.43)
[2024-12-30 14:36] LABS: Alanine Aminotransferase 15 U/L (0-41); Albumin Level 4.3 g/dL (3.5-5.2); Alkaline Phosphatase 121 U/L (40-130); Anion Gap 11.1 (5-19); Aspartate Amino Transferase 14 U/L (0-40); Blood Urea Nitrogen 8 mg/dL (6-20); Calcium 9.3 mg/dL (8.5-10.5); Carbon Dioxide 26 mmol/L (22-29); Chloride 108 mmol/L (98-107); Creatinine Clr Calc Pharmacy 148.5079; Globulin 2.5 g/dL (1.3-4.6); Glucose 102 mg/dL (65-115); Lipase 23 U/L (13-60); Osmolality Calculated 291 mOsm/kg (285-295); Potassium 4.1 mmol/L (3.5-5.1); Sodium 141 mmol/L (136-145); Total Bilirubin 0.6 mg/dL (0.15-1.2); Total Protein 6.8 g/dL (6.6-8.7)
[2024-12-30 15:04] LABS: Influenza A NEGATIVE (Negative); Influenza B NEGATIVE (Negative); Respiratory Syncytial Virus Ce NEGATIVE (Negative); SARS-CoV-2 PCR NEGATIVE (Negative)
[2024-12-30 15:31] VITALS: BP 137/74; PULSE 88; O2SAT 97
== END 2024-12-30 15:32 | disposition home or self-care (01) ==
PROVIDERS: Emergency Medicine; Emergency Provider Physician Assistant; PCP Family Medicine
DX: K52.9 Noninfective gastroenteritis and colitis, unspecified (principal); Z11.52 Encounter for screening for COVID-19; F17.210 Nicotine dependence, cigarettes, uncomplicated
CPT/HCPCS: 36415; 80053; 83690; 85025; 87637; 99283

== ENCOUNTER → 2025-06-03 14:44 | Outpatient (BNVA) | payer MEDICAID, SELFPAY ==
[2024-12-18 11:19] VITALS: BP 137/94; BMI 28.0
== END ==
PROVIDERS: PCP Family Medicine
DX: J06.9 Acute upper respiratory infection, unspecified (principal); J02.9 Acute pharyngitis, unspecified
CPT/HCPCS: 87070; 87400; 87426; 87880